=== PATIENT | female | born 1940 | race Caucasian/White ===

== ENCOUNTER 2022-06-10 16:09 | Outpatient (CLI) | payer MEDICARE, SELFPAY ==
--- OUTSIDE RECORDS SUMMARY | 2022-06-10 16:14 | XMS_ITS | Encounter Summary ---
:1940 Author Organization [place] Address [address] [place] [address]. [place] [address] Care Team Providers Name Role Phone Miryam Rob Primary Care Provider Encounter Details Date Type Department Care Team Description 09/21/2020 Travel Social History Tobacco Use Types Packs/Day Years Used Date Never Smoker Alcohol Use Standard Drinks/Week Comments Yes 0 (1 standard drink = 0.6 oz pure alcoho l) socially Alcohol Habits Answer Date Recorded How often do you have a drink containing alcohol? Not asked How many drinks containing alcohol do you have on a typical Not asked day when you are drinking? How often do you have six or more drinks on one occasion? No t asked Comment: socially 07/19/2013 Sex Assigned at Date Recorded Not on file COVID-19 Exposure Response Date Recorded In the last month, have you been in contact with No / Unsure 09/21/2020 3:51 PM POWER CHECKER someone who was confirmed or suspected to have Coronavirus / COVID-19? documented as of this encounter Plan of Treatment Not on filedocumented as of this encounter Visit Diagnoses Not on filedocumented in this encounter Care Teams Planer Setup Operator Relationship Specialty Start Date End Date Miryam Rob PCP - General Internal Medicine 07/19/13 [facility] [address] [place] [address] documented as of this encounter
--- OUTSIDE RECORDS SUMMARY | 2022-06-10 16:14 | XMS_ITS | Clinical Summary ---
:1940 Author Organization [place] Address [address] [place] [address] Care Team Providers Name Role Phone Miryam Rob Primary Care Provider Allergies No known active allergies Medications Medication Sig Dispensed Refills Start Date End Date Status LEVOTHYROXINE SODIUM Take 175 mcg by 0 Active PO mouth every other day . Alternates 175 mcg with 200 mcg qod LEVOTHYROXINE SODIUM Take 200 mcg by 0 Active PO mouth every other day .Alternates 175 mcg with 200 mcg qod METOPROLOL SUCCINATE Take 25 mg by 0 Active ER PO mouth Simvastatin (ZOCOR PO) Take 20 mg by 0 Active mouth every morning Citalopram Take 40 mg by 0 Activ e Hydrobromide (CELEXA mouth daily PO) warfarin (COUMADIN) Take 2 tablets (5 30 tablet 0 07/22/2013 Active 2.5 MG mg) by mouth daily tabletIndications: PE (pulmonary embolism) Active Problems Problem Noted Date Acute pulmonary embolism 07/19/2013 Social History Tobacco Use Types Packs/Day Years [...] Assigned at Date Recorded Not on file Last Filed Vital Signs Vital Sign Reading Time Taken Comments Blood Pressure 123/82 02/24/2019 7:31 PM CDT Pulse 85 07/19/2013 3:22 PM CDT Temperature 36.2 ??C (97.1 ??F) 02/24/2019 7:31 PM CDT Respiratory Rate 20 02/24/2019 7:31 PM CDT Oxygen Saturation 98% 02/24/2019 7:31 PM CDT Inhaled Oxygen Concentration - - Weight 99.8 kg (220 lb) 02/24/2019 7:31 PM CDT Height 162.6 cm (5' 4) 02/24/2019 7:31 PM CDT Body Mass Index 37.76 02/24/2019 7:31 PM CDT Plan of Treatment Health Maintenance Due Date Last Done Comments ADVANCE CARE PLANNING 1940 ANNUAL REVIEW OF HM ORDERS 1940 DEXA 1940 COVID-19 Vaccine (#1) 1940 LIPID 1987 FALL RISK ASSESSMENT 2007 MEDICARE ANNUAL WELLNESS 2007 VISIT DTAP/TDAP/TD IMMUNIZATION 03/18/2008 03/17/2008 (1 - Tdap) ZOSTER IMMUNIZATION (2 of 10/02/2012 08/07/2012 3) PHQ-2 (once per calendar 09/29/2021 year) INFLUENZA VACCINE (#1) 2022 07/01/2018, 06/11/2017, 07/06/2015, Additional history exists Pneumococcal Vaccine: 65+ Completed 01/02/2015, 05/25/2010 , Years 03/17/2008 HEPATITIS B IMMUNIZATION Aged Out No long er eligible based on patient 's age to complete this topic IPV IMMUNIZATION Aged Out No longer eligi ble based on patient 's age to complete this topic MENINGITIS IMMUNIZATION Aged Out No longe r eligible based on patient 's age to complete this topic Insurance Payer Benefit Plan / Subscriber ID Effective Phone Address T ype Group Dates MEDICARE MEDICARE [id number] 2007-Pre [phone] ATTN Medic are sent [id number] [place] [address] [facility] [id number] 2018-Pre [phone] [address] MEDICARE SUPP SR sent [phone] [facility] [place] [id number] MEDICARE MEDICARE FOR HB [id number] 2012-Pre [phone] ATTN Medicare SUPPLEMENT sent [id number] CLAIMS [address] [place] [address] Advance Directives For more information, please contact: [phone] Latest Code Status on File Code Status Date Activated Date Inactivated Comments Full Code 07/19/2013 8:09 PM 07/22/2013 3:01 PM Care Teams Conservation Technician Relationship Specialty Start Date End Date Miryam Rob PCP - General Internal Medicine 07/19/13 [facility] [address] [place] [address]
--- OUTSIDE RECORDS SUMMARY | 2022-06-10 16:14 | XMS_ITS | Encounter Summary ---
:1940 Author Organization [place] Address [facility] [place] [address] Care Team Providers Name Role Phone Miryam Rob Primary Care Provider Encounter Details Date Type Department Care Team Description 02/24/2019 Emergency [facility] Oral Biswas of left lower leg; [facility] Pati Gates MD Thrombophlebitis; Dept [facility] Subtherapeutic international normalized ratio (INR) [address] [place], [place] [address] [facility] [id number] [place] [address] (Wo rk) Social History Tobacco Use Types Packs/Day Years [...] Assigned at Date Recorded Not on file documented as of this encounter Last Filed Vital Signs Vital Sign Reading Time Taken Comments Blood Pressure 123/82 02/24/2019 7:31 PM CDT Pulse - - Temperature 36.2 ??C (97.1 ??F) 02/24/2019 7:31 PM CDT Respiratory Rate 20 02/24/2019 7:31 PM CDT Oxygen Saturation 98% 02/24/2019 7:31 PM CDT Inhaled Oxygen Concentration - - Weight 99.8 kg (220 lb) 02/24/2019 7:31 PM CDT Height 162.6 cm (5' 4) 02/24/2019 7:31 PM CDT Body Mass Index 37.76 02/24/2019 7:31 PM CDT documented in this encounter Discharge Instructions AttachmentsThe following attachments cannot be sent through Care Everywhere. Thrombophlebitis, Superficial (Nicaraguan)documented in this encounter Medications at Time of Discharge Medication Sig Dispensed Refills Start Date End Date Citalopram Hydrobromide Take 40 mg by mouth 0 (CELEXA PO) daily LEVOTHYROXINE SODIUM PO Take 175 mcg by mouth 0 every other day . Alternates 175 mcg with 200 mcg qod LEVOTHYROXINE SODIUM PO Take 200 mcg by mouth 0 every other day .Alternates 175 mcg with 200 mcg qod METOPROLOL SUCCINATE ER Take 25 mg by mouth 0 PO Simvastatin (ZOCOR PO) Take 20 mg by mouth 0 every morning warfarin (COUMADIN) 2.5 Take 2 tablets (5 mg) 30 tablet 0 1 MG tabletIndications: PE by mouth daily (pulmonary embolism) documented as of this encounter ED Notes Whitney Hung RN - 02/24/2019 7:35 PM CDT Pt has redness and swelling in left lower leg for 5 days. Pt does take coumadin for blood clots. Concerned for DVT Oral Biswas MD - 02/24/2019 7:20 PM CDT History Chief Complaint: Leg Symptoms HPI Milla Gonsales is a 78 year old female with a history of atrial fibrillation, PE, and DVT anticoagulated on Coumadin who presents with leg symptoms. The patient reports that for the past 5 days she has had increased redness, swelling, and pain to her left foot and leg. She states the foot is t malathi to touch and this discomfort is aggravated by walking. She is concerned for possible DVT, prompting her presentation to the ED for evaluation. She denies having any recent fevers. Of note, she does not recall when her INR was last checked. PE/DVT RISK FACTORS: Sex: Female Hormones: No Tobacco: No Cancer: No Travel: No Surgery: No Other immobilization: No Personal history: Yes Family history: No Allergies: No known drug allergies Medications: Celexa Levothyroxine Metoprolol succinate Zocor Coumadin Past Medical History: Atrial fibrillation Cancer Depressive disorder Pulmonary embolism Thyroid disease Past Surgical History: Appendectomy Bypass gastric duodenal switch ENT surgery Family History: History reviewed. No pertinent family history. Social History: The patient presents to the ED alone. Marital status: Smoking status: Never Smoker Alcohol use: Yes Drug use: No Review of Systems Constitutional: Negative for fever. Cardiovascular: Positive for leg swelling. Musculoskeletal: Positive for left foot and leg pain. Skin: Positive for color change (redness). All other systems reviewed and are negative. Physical Exam First Vitals: BP: 123/82 Heart Rate: 90 Temp: 97.1 ??F (36.2 ??C) Resp: 20 Height: 162.6 cm (5' 4) Weight: 99.8 kg (220 lb) SpO2: 98 % Physical Exam General: No respiratory distress Cardiovascular: Good cap refill. Varicosities of the left leg. Respiratory: Breathing non labored. Musculoskeletal: No tenderness. No bony deformity. Lymphatic: Swelling of her left leg. Skin: Erythema of the medial left calf. No rashes or petechiae Neurologic: non focal Psychiatric: Appropriate Emergency Department Course Imaging: Radiographic findings were communicated with the patient who voiced understanding of the findings. US LOWER EXTREMITY VENOUS DUPLEX LEFT: IMPRESSION: 1. Acute occlusive superficial venous thrombus involving the lesser saphenous vein in the calf. 2. 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 3. No evidence for any acute deep vein thrombosis. As read by Radiology. Laboratory: INR: 1.28 (H) Interventions: 2217: Lovenox 100 mg IM Emergency Department Course: Past medical records, nursing notes, and vitals reviewed. 2019: I performed an exam of the patient and obtained history, as documented above. The patient was sent for a lower extremity ultrasound while in the emergency department, findings above. IV inserted and blood samples were collected and sent for laboratory testing, findings above. 2147: I rechecked the patient and explained the findings. Findings and plan explained to the patient. Patient discharged home with instructions regarding supportive care and reasons to return. The importance of close follow-up was reviewed. Impression & Plan Medical Decision Making: Milla Gonsales is a 78 year old female with a history of previous DVT. She has unfortunately been cutting back on her medication and that is why she is subtherapeutic for INR. There is rednessalong the left foot, but it does not appear to be cellulitis. I was more suspicious for superficial thrombophlebitis which is present. However, there is an old nonocclusion clot inside the leg. To cover her, I will have her increase her dose of Coumadin to her previous levels and cover her with Lovenox tonight. She was discharged home in good condition with no chest-related symptoms. Diagnosis: ICD-10-CM 1. Pain of left lower leg M79.662 2. Thrombophlebitis I80.9 3. Subtherapeutic international normalized ratio (INR) R79.1 Disposition: Discharged to home Jada Montez 02/24/2019 [facility] EMERGENCY DEPARTMENT I, Jada Montez, am serving as a scribe at 8:20 PM on 02/24/2019 to document services personally performed by Oral Biswas MD based on my observations and the provider's statements to me. Oral Biswas MD 02/24/19 2221 documented in this encounter Plan of Treatment Not on filedocumented as of this encounter Procedures Procedure Name Priority Date/Time Associated Diagnosis Comme nts US LOWER EXTREMITY STAT 02/24/2019 9:28 PM Res ults for this VENOUS DUPLEX LEFT CDT procedure are in the results section. INR STAT 02/24/2019 8:42 PM Results f or this CDT procedure are i n the results section. documented in this encounter Results US Lower Extremity Venous Duplex Left (02/24/2019 9:28 PM CDT) Anatomical Region Laterality Modality Vascular, Thigh, Leg Ultrasound Specimen (Source) Anatomical Location Collection Method / Collectio n Time Received Time / Laterality Volume Impressions 02/24/2019 10:24 PM CDT IMPRESSION: 1. Acute occlusive superficial venous th rombus involving the lesser saphenous vein in the calf. 2. Chronic-appearing nonocclusive thromb us within the left gastrocnemius vein of the calf. 3. No evidence for any acute deep vein t hrombosis. KAYLYN KRUSE MD Narrative 02/24/2019 10:24 PM CDT VENOUS ULTRASOUND LEFT LEG ??02/24/2019 9:28 PM HISTORY: Left leg pain and swelling COMPARISON: 07/19/2013 FINDINGS: ??Examination of the deep vein s with graded compression and color flow Doppler with spectral wave fo rm analysis shows no evidence of thrombus in the common femoral vein, femoral vein, popliteal vein or calf veins. There is some thrombus in the left gastrocnemius vein proximally which appears nonocclusive an d could be chronic. There is also some superficial thrombus in the le ft lesser saphenous vein in the region of the calf which appears acu te and occlusive. Procedure Note Kaylyn Kruse MD - 02/24/2019Form atting of this note might be different from the original. VENOUS ULTRASOUND LEFT LEG 02/24/2019 9:2 8 PM HISTORY: Left leg pain and swelling COMPARISON: 07/19/2013 FINDINGS: Examination of the deep veins with graded compression and color flow Doppler with spectral wave fo rm analysis shows no evidence of thrombus in the common femoral vein, femoral vein, popliteal vein or calf veins. There is some thrombus in the left gastrocnemius vein proximally which appears nonocclusive an d could be chronic. There is also some superficial thrombus in the le ft lesser saphenous vein in the region of the calf which appears acu te and occlusive. IMPRESSION: 1. Acute occlusive superficial venous th rombus involving the lesser saphenous vein in the calf. 2. Chronic-appearing nonocclusive thromb us within the left gastrocnemius vein of the calf. 3. No evidence for any acute deep vein t hrombosis. KAYLYN KRUSE MD Oral Biswas MD [facility] US ORDERABLES (ABNORMAL) INR (02/24/2019 8:42 PM CDT) P athologist Signature INR 1.28 (H) 0.86 - 1.14 02/24/2019 [place] 8:59 PM CDT [facility] Specimen Anatomical Collection Method Collection Time Receive d Time (Source) Location / / Volume Laterality Blood specimen 02/24/2019 8:42 PM 019 8:47 (specimen) CDT PM CDT Oral Biswas MD LAB - BLOOD ORDERABLES Performing Organization Address City/State/ZIP Code Phon e Number M [facility] [address] [place], [place] [address] [facility] [address] [place], [place] [address] [facility] [phone] documented in this encounter Visit Diagnoses Diagnosis Pain of left lower leg Pain in limb Thrombophlebitis Phlebitis and thrombophlebitis of unspec ified site Subtherapeutic international normalized ratio (INR) Abnormal coagulation profile documented in this encounter Administered Medications Inactive Administered Medications - up to 3 most recent administrations Medication Order MAR Action Action Date Dose Rate Site enoxaparin (LOVENOX) injection Given 02/24/2019 10:17 PM CDT 100 mg 100 mg 100 mg, Subcutaneous, ONCE, On Fri02/24/19 at 2155, For 1 dose documented in this encounter Active and Recently Administered Medications Times are shown in CDT. Scheduled Medication Order 02/22/2019 02/23/2019 02/24/2019 enoxaparin (LOVENOX) injection 100 mg (COMPLETED) 2216 (Given - Provider: Jeanine Mccarty LPN) 100 mg, Subcutaneous, ONCE, Fri02/24/19 at 2155, For 1 dose documented in this encounter Care Teams Lighting Technician Relationship Specialty Start Date End Date Miryam Rob PCP - General Internal Medicine 07/19/13 [facility] [address] [place] [address] documented as of this encounter
--- OUTSIDE RECORDS SUMMARY | 2022-06-10 16:14 | XMS_ITS | Encounter Summary ---
:1940 Author Organization [place] Address [address] [place] [address]. [place] [address] Care Team Providers Name Role Phone Miryam Rob Primary Care Provider Encounter Details Date Type Department Care Team Description 02/24/2019 Travel Social History Tobacco Use Types Packs/Day [...] on file documented as of this encounter Plan of Treatment Not on filedocumented as of this encounter Visit Diagnoses Not on filedocumented in this encounter Care Teams Assistant Secretary Relationship Specialty Start Date End Date Miryam Rob PCP - General Internal Medicine 07/19/13 [facility] [address] [place] [address] documented as of this encounter
--- OUTSIDE RECORDS SUMMARY | 2022-06-10 16:15 | XMS_ITS | Encounter Summary ---
:1940 Author Organization [facility] Address [address] [place] [id number] Care Team Providers Name Role Phone Miryam Rob Primary Care Provider Reason for Referral Specialty Diagnoses / Procedures Referred By Contact Refer red To Contact Anjelica Dela Cruz M D [address] [place] [address] Referral ID Status Reason Start Date Expiration Date Visits Requ ested Visits Authorized Reason for Visit Reason Comments Shortness of Breath Auth/Cert - Closed Specialty Diagnoses / Procedures Referred By Contact Refer red To Contact Diagnoses PE (pulmonary embolism) [id number] pulmonary [id number] [facility] [address] [place], [place] [address] Phone: Fax: Referral ID Status Reason Start Date Expiration Date Visits Requ ested Visits Authorized [id number] Closed 07/20/2013 01/16/2014 1 1 Encounter Details Date Type Department Care Team Description 07/19/2013 - [facility] Katia Paris MD [facility] [address] [place] [address] PE (pulmonary embolism) (H) (Primary Dx) ; 07/22/2013 Encounter [facility] [place] [address] [place] [address] Acute pulmonary embolism (H) Surgical [address] [place] [address] Social History Tobacco Use Types Packs/Day Years [...] Sign Reading Time Taken Comments Blood Pressure 129/79 07/22/2013 7:30 AM CDT Pulse 85 07/19/2013 3:22 PM CDT Temperature 35.8 ??C (96.4 ??F) 07/22/2013 7:30 AM CDT Respiratory Rate 20 07/22/2013 7:30 AM CDT Oxygen Saturation 95% 07/22/2013 7:30 AM CDT Inhaled Oxygen Concentration - - Weight 107 kg (235 lb 12.8 oz) 07/19/2013 8:06 PM CDT Height 162.6 cm (5' 4) 07/19/2013 8:06 PM CDT Body Mass Index 40.47 07/19/2013 8:06 PM CDT documented in this encounter Discharge Summaries Anjelica Dela Cruz MD - 07/22/2013 11:01 AM CDT PRIMARY CARE PHYSICIAN: Dr. Miryam Rob. DISCHARGE DIAGNOSIS: Acute bilateral pulmonary embolism. SECONDARY DIAGNOSES: 1. Hypothyroidism. 2. History of depression. 3. Atrial fibrillation. 4. Hyperlipidemia. DISCHARGE DISPOSITION: Home. CONDITION ON DISCHARGE: The patient is hemodynamically stable. She is off oxygen. She has no chest pain or shortness of breath. Vital signs are stable on the day of discharge. Her INR is 1.33. DISCHARGE MEDICATIONS: 1. Coumadin 2.5 mg tablets 2 tablets that is 5 mg daily until 07/26/2013 when she gets INR check at her primary care doctor's office in [place] for further Coumadin dosing. 2. Lovenox 105 mg subcutaneous injection twice a day for the next 5 days. 3. Celexa 40 mg p.o. daily. 4. Levothyroxine 125 mcg p.o. every other day and 200 mcg every other day as well. 5. Metoprolol 25 mg p.o. daily. 6. Zocor 20 mg p.o. daily. 7. Her aspirin was stopped due to concern for GI for bleeding, in addition to Lovenox and Coumadin. DISCHARGE INSTRUCTIONS: DIET: Regular as tolerated. She was told about anticoagulation and interaction with nutrition. ACTIVITIES: As tolerated. FOLLOWUP: Follow up with her primary doctor. Her primary care physician is Dr. Miryam Rob of [facility] in [place]. Her fax number is [phone], telephone number is [phone]. CODE STATUS: The patient is full code. ALLERGIES: No known medication allergies. BRIEF HOSPITAL SUMMARY: Lynne Gonsales is a 73-year-old female who was admitted to [facility] after she presented with shortness of breath. She had extensive bilateral pulmonaryembolism, and fortunately her symptoms were mild to moderate. The patient was treated with IV heparin, which was changed to Lovenox injection; she was told about anticoagulation, and this was transitioned to Lovenox and Coumadin. Her INR will be rechecked at her primary doctor's next week, 07/26/2013 for further dosing of Coumadin. She was discharged on 5 mg daily. Overall, the patient's condition improved and she was seen by physical therapy and occupational therapy. She was ambulatory and she was a little short of breath when ambulating, dyspnea on exertion; however, she has no hypoxia. Echocardiogram was obtained on 07/20/2013, which showed normal left ventricular function, moderate bilateral enlargement, likely from atrial fibrillation, right ventricular systolic pressure was elevated consistent with mild pulmonary hypertension. CT scan of the chest showed bilateral pulmonary emboli, right greater than left, and there was possible right heart strain on the CT scan. Overall on the day of discharge, the patient is comfortable. She is able to discharge on above medication recommendations and follow up with her primary doctor. Her other medical problems have been stable and she was instructed to follow with her primary doctoras well. More than 30 minutes spent on discharge and coordination of this patient's discharge. ANJELICA DELA CRUZ MD MT: [id number] Name: LYNNE GONSALES MRN: [id number] Account: [id number] : 1940 Admit Date: Discharge Date: Document: [id number] cc: Miryam Rob MD documented in this encounter Discharge Instructions AttachmentsThe following attachments cannot be sent through Care Everywhere. Enoxaparindocumented in this encounter Medications at Time of [...] mg) 30 tablet 0 1 MG tabletIndications: by mouth daily PE (pulmonary embolism) enoxaparin (LOVENOX) Inject 0.7 mLs (105 7 mL 0 201207/27/2013 120 MG/0.8ML mg) Subcutaneous every SOLNIndications: PE 12 hours for 5 days (pulmonary embolism) documented as of this encounter Progress Notes Abbey Garcia - 07/22/2013 10:50 AM CDT 07/22/13 1049 Signing Clinician's Name / Credentials Signing clinician's name / credentials Abbey Garcia DPT Khanna Balance Scale Sit To Stand 4 Standing Unsupported 4 Sitting Unsupported 4 Stand to Sit 4 Transfers 4 Standing with Eyes Closed 4 Standing Unsupported, Feet Together 4 Reach Forward With Outstretched Arm 4 Retrieve Object From Floor 4 Turning to Look Behind 4 Turn 360 Degrees 4 Placing Alternate Foot on Stool (4-6 inches) 3 Unsupported Tandem Stand (Demonstrate to Subject) 0 One Leg Stand 2 Total Score (A score of 45 or less has been correlated with an increased risk of falls) Total Score (out of 56) 49 Abbey Garcia - 07/21/2013 2:55 PM CDT 07/21/13 1451 Quick Adds Type of Visit Initial PT Evaluation Living Environment (R) Lives With spouse Transportation Available family or friend will provide;car Self-Care Usual Activity Tolerance good Current Activity Tolerance moderate Activity/Exercise/Self-Care Comment pt does not use an AD. (R) Functional Level Prior (R) Ambulation 0-->independent (R) Transferring 0-->independent (R) Toileting 0-->independent (R) Bathing 0-->independent (R) Dressing 0-->independent (R) Eating 0-->independent (R) Communication 0-->understands/communicates without difficulty (R) Swallowing 0-->swallows foods and liquids without difficulty (R) Cognition 0 - no cognition issues reported (R) Fall history within last six months no (R) Which of the above functional risks had a recent onset or change? none Prior Functional Level Comment Pt was I with all mobility and ADLs at baseline. General Information Onset of Illness/Injury or Date of Surgery - Date 07/19/[address] Dela Cruz Patient/Family Goals Statement to go home tomorrow Pertinent History of Current Problem Pt admitted with SOB and RAMIREZ, found to have B PE. PMH: A-fib, colon cancer Precautions/Limitations fall precautions Weight-Bearing Status - LUE full weight-bearing Weight-Bearing Status - RUE full weight-bearing Weight-Bearing Status - LLE full weight-bearing Weight-Bearing Status - RLE full weight-bearing General Observations pt was in bed, agreeable to PT eval General Info Comments family present during eval Cognitive Status Examination Orientation orientation to person, place and time Level of Consciousness alert Follows Commands and Answers Questions 100% of the time Personal Safety and Judgment intact Memory intact Pain Assessment Patient Currently in Pain No Posture Posture Forward head position;Protracted shoulders Range of Motion (ROM) ROM Comment B LE ROM WFL Strength Strength Comments LE strength WFL Bed Mobility Bed Mobility Comments SBA for supine <> sit Transfer Skills Transfer Comments SBA for sit <> stand Gait Gait Comments Pt ambulated 30 feet with SBA Balance Balance Comments sitting balance is good, standing balance is fair/good. Muscle Tone Muscle Tone no deficits were identified General Therapy Interventions Planned Therapy Interventions balance training;gait training;strengthening;progressive activity/exercise;home program guidelines Clinical Impression Criteria for Skilled Therapeutic Intervention yes, treatment indicated PT Diagnosis decreased activity tolerance APTA Preferred Practice Pattern cardiopulmonary Influenced by the following impairments SOB, impaired balance Functional limitations due to impairments fatigues quickly with mobilty Rehab Potential good, to achieve stated therapy goals Rehab potential affected by PLOF Therapy Frequency` daily Predicted Duration of Therapy Intervention (days/wks) 2 days Anticipated Discharge Disposition home w/ assist;home w/ outpatient services Risk & Benefits of therapy have been explained Yes Patient, Family & other staff in agreement with plan of care Yes Total Evaluation Time Total Evaluation Time (Minutes) 15 Anjelica Dela Cruz MD - 07/21/2013 2:45 PM CDT [facility] Hospitalist Progress Note Name: Lynne Gonsales Date of : 1940 Age: [age] year old Date of admission: 07/19/2013 Primary care provider: Miryam Rob Lynne Gonsales is a 73 year old female admitted on 07/19/2013 for :Shortness of breath. Patient Active Problem List Diagnosis ??? Acute pulmonary embolism Interval History: Patient was seen and examined Medical records reviewed including overnight events and nursing notes and concerns. no complaints and doing well; no cp, sob, n/v/d, or abd pain. Physical Exam: Vitals signs Blood pressure 99/61, pulse 85, temperature 98.5 ??F (36.9 ??C), temperature source Oral, resp. rate16, height 1.626 m (5' 4), weight 106.958 kg (235 lb 12.8 oz), SpO2 99.00%. I/O I/O last 3 completed shifts: In: 240.8 [I.V.:240.8] Out: - Filed Vitals: 07/19/13 1522 07/19/132005 Weight: 103.874 kg (229 lb) 106.958 kg (235 lb 12.8 oz) BP Readings from Last 1 Encounters: 07/21/13 99/61 Pulse Readings from Last 1 Encounters: 07/19/13 85 Resp Readings from Last 1 Encounters: 07/21/13 16 Temp Readings from Last 1 Encounters: 07/21/13 98.5 ??F (36.9 ??C) Oral SpO2 Readings from Last 1 Encounters: 07/21/13 99% Wt Readings from Last 1 Encounters: 07/19/13 106.958 kg (235 lb 12.8 oz) Ht Readings from Last 1 Encounters: 07/19/13 1.626 m (5' 4) GENERAL: The patient is an alert, oriented female who is in no acute distress. HEENT: Pupils round, react to light. Extraocular movements are intact. Sclerae are nonicteric. Conjunctiva is pink. Oral mucosa is pink and moist. NECK: Supple with no evidence of cervical lymphadenopathy or thyromegaly. Trachea is midline. CARDIAC: Irregular, irregular rhythm but no significant murmur, rubs or gallops appreciated. PULMONARY: Exam is slightly decreased at the bases but otherwise clear to auscultation bilaterally. No significant wheezing, rales or rhonchi appreciated. No use of accessory muscles or intercostal retraction. ABDOMEN: Obese sounds are present, soft, nontender, nondistended with no hepatosplenomegaly. EXTREMITIES: Reveals no clubbing, cyanosis or edema. Her bilateral legs are somewhat plump but no obvious erythema, palpable cords or swelling appreciated. NEUROLOGIC: Cranial nerves II-XII is intact. She has bilateral symmetric upper and lower extremity strength. Sensation is intact distally. She has no focal deficits. PSYCHIATRIC: Mood and affect are appropriate. Medications: I have reviewed this patient's current medications Data: All laboratory and imaging data in the past 24 hours reviewed Lab 07/19/13 1555 WBC 7.2 HGB 12.4 HCT 38.2 MCV 87 PLT 187 No results found for this basename: CULT:* in the last 168 hours Lab 07/19/13 1555 NA 142 POTASSIUM 4.1 CHLORIDE 106 CO2 24 ANIONGAP 12 GLC 90 BUN 17 CR 0.82 GFRESTIMATED 69 GFRESTBLACK 83 KB 9.0 MAG -- PHOS -- PROTTOTAL -- ALBUMIN -- BILITOTAL -- ALKPHOS -- AST -- ALT -- Lab 07/19/13 1555 CR 0.82 Lab 07/19/13 1555 GLC 90 BGM -- Lab 07/19/13 1555 HGB 12.4 Lab 07/21/13 0731 07/20/13 0640 07/19/13 1555 INR 1.16* 1.16* 0.88 Lab 07/19/13 1555 PLT 187 Lab 07/19/13 1555 TROPONIN -- TROPI <0.012 TROPR -- Recent Results (from the past 48 hour(s)) -XR CHEST 2 VW Narrative: XR CHEST 2 VW 07/19/2013 4:22 PM HISTORY: Short of breath. COMPARISON: None. FINDINGS: Heart size normal. Lungs clear. Mild hypertrophic changes thoracic spine. Impression: IMPRESSION: Negative chest. ITZ ALVAREZ MD -CT CHEST PULMONARY EMBOLISM W CONTRAST Narrative: CT CHEST PULMONARY EMBOLISM WITH CONTRAST 07/19/2013 6:07 PM HISTORY: Shortness of breath. Elevated D-dimer. TECHNIQUE: CT chest with intravenous contrast using the pulmonary embolus protocol. 97 mL Optiray-320. COMPARISON: None. FINDINGS: Evaluation of the pulmonary arterial system shows large central pulmonary emboli extending into all three lobes of the right lung. There are smaller emboli in the left upper lobe and left lower lobe pulmonary arteries. The right ventricle is at least as large as the left ventricle suggesting right heart strain. There is no mediastinal, hilar or axillary lymph node enlargement. There are a few coronary artery atherosclerotic calcifications. No aortic aneurysm or dissection. There is minimal atelectasis or scarring in the lower lobes. Lungs otherwise clear. No pleural effusion. Images through the upper abdomen show no acute abnormalities. There are postoperative changes in the stomach. Impression: IMPRESSION: 1. Bilateral pulmonary emboli, right greater than left. 2. Possible right heart strain. Dr. Paris was contacted by me on 07/19/2013 at 6:15 p.m. regarding the abnormal finding of pulmonary emboli and verbalized understanding of the abnormal finding. ROSIO SOLIMAN MD -US LOWER EXTREMITY VENOUS DUPLEX BILATERAL Narrative: US LOWER EXTREMITY VENOUS DUPLEX BILATERAL 07/19/2013 9:59 PM HISTORY: Pulmonary embolus. Evaluate for DVT. COMPARISON: None. FINDINGS: Bright-scale, color and Doppler spectral analysis ultrasound was performed of the legs. Compression and augmentation imaging was performed. There is no evidence for deep venous thrombosis. The veins compress and augment normally. Impression: IMPRESSION: No DVT. ROSIO SOLIMAN MD Assessment and Plan: Ms. Lynne Gonsales is a 73-year-old female with a past medical history significant for atrial fibrillation, hypothyroidism, remote history of colon cancer who comes in to the emergency room with a 4-day complaint of worsening shortness of breath and dyspnea on exertion. Evaluation in the emergency room reveals fairly extensive pulmonary emboli, encompassing all 3 lobes of her right lung and afew smaller emboli on the left. Surprisingly, given her extensive embolism she remains quite stable with stable vital signs and fairly asymptomatic at rest. She has been started on heparin drip and is admitted to the hospital for further evaluation and management for her acute PE. 1. Acute bilateral pulmonary embolism. -continue heparin and coumadin -will transition to lovenox and coumadin this evening -No DVT evident on US -Anticoagulation teaching 2. Hypothyroidism: Synthroid. 3. Atrial fibrillation: Currently rate controlled. Will continue metoprolol 4. Depression: Continue Celexa. 5. Hyperlipidemia: Continue Zocor. 6. Activity as able Disposition -continue inpatient care ,may discharge in a day or so if she remains stable Enedina Hidalgo RN - 07/21/2013 6:13 AM CDT Assisted pt up to the BR. Noted pt to be slightly unsteady on feet. Pt refused to allow staff in theBR with her. Informed pt of fall risk & noted to be unsteady on her feet. Pt stated she needed privacy. Again explained to pt fall precautions & risk. Pt verbalized understanding but continued to decline staff to leave door open & be within an arms reach of pt. Enedina Hidalgo RN, C, BSN, CDE Medical/Telemetry - 3 Anjelica Dela Cruz MD - 07/20/2013 2:02 PM CDT [facility] Hospitalist Progress Note Name: Lynne Gonsales Date of : 1940 Age: [age] year old Date of admission: 07/19/2013 Primary care provider: Miryam Rob Lynne Gonsales is a 73 year old female admitted on 07/19/2013 for :Shortness of breath. Patient Active Problem List Diagnosis ??? Acute pulmonary embolism Interval History: Patient was seen and examined Medical records reviewed including overnight events and nursing notes and concerns. no complaints and doing well; no cp, sob, n/v/d, or abd pain. Physical Exam: Vitals signs Blood pressure 107/68, pulse 85, temperature 96.6 ??F (35.9 ??C), temperature source Oral, resp. rate 16, height 1.626 m (5' 4), weight 106.958 kg (235 lb 12.8 oz), SpO2 96.00%. I/O I/O last 3 completed shifts: In: 491.7 [P.O.:300; I.V.:191.7] Out: - Filed Vitals: 07/19/13 1522 07/19/132005 Weight: 103.874 kg (229 lb) 106.958 kg (235 lb 12.8 oz) BP Readings from Last 1 Encounters: 07/20/13 107/68 Pulse Readings from Last 1 Encounters: 07/19/13 85 Resp Readings from Last 1 Encounters: 07/20/13 16 Temp Readings from Last 1 Encounters: 07/20/13 96.6 ??F (35.9 ??C) Oral SpO2 Readings from Last 1 Encounters: 07/20/13 96% Wt Readings from Last 1 Encounters: 07/19/13 106.958 kg (235 lb 12.8 oz) Ht Readings from Last 1 Encounters: 07/19/13 1.626 m (5' 4) GENERAL: The patient is an alert, oriented female who is in no acute distress. HEENT: Pupils round, react to light. Extraocular movements are intact. Sclerae are nonicteric. Conjunctiva is pink. Oral mucosa is pink and moist. NECK: Supple with no evidence of cervical lymphadenopathy or thyromegaly. Trachea is midline. CARDIAC: Irregular, irregular rhythm but no significant murmur, rubs or gallops appreciated. PULMONARY: Exam is slightly decreased at the bases but otherwise clear to auscultation bilaterally. No significant wheezing, rales or rhonchi appreciated. No use of accessory muscles or intercostal retraction. ABDOMEN: Obese sounds are present, soft, nontender, nondistended with no hepatosplenomegaly. EXTREMITIES: Reveals no clubbing, cyanosis or edema. Her bilateral legs are somewhat plump but no obvious erythema, palpable cords or swelling appreciated. NEUROLOGIC: Cranial nerves II-XII is intact. She has bilateral symmetric upper and lower extremity strength. Sensation is intact distally. She has no focal deficits. PSYCHIATRIC: Mood and affect are appropriate. Medications: I have reviewed this patient's current medications Data: All laboratory and imaging data in the past 24 hours reviewed Lab 07/19/13 1555 WBC 7.2 HGB 12.4 HCT 38.2 MCV 87 PLT 187 No results found for this basename: CULT:* in the last 168 hours Lab 07/19/13 1555 NA 142 POTASSIUM 4.1 CHLORIDE 106 CO2 24 ANIONGAP 12 GLC 90 BUN 17 CR 0.82 GFRESTIMATED 69 GFRESTBLACK 83 KB 9.0 MAG -- PHOS -- PROTTOTAL -- ALBUMIN -- BILITOTAL -- ALKPHOS -- AST -- ALT -- Lab 07/19/13 1555 CR 0.82 Lab 07/19/13 1555 GLC 90 BGM -- Lab 07/19/13 1555 HGB 12.4 Lab 07/20/13 0640 07/19/13 1555 INR 1.16* 0.88 Lab 07/19/13 1555 PLT 187 Lab 07/19/13 1555 TROPONIN -- TROPI <0.012 TROPR -- Recent Results (from the past 48 hour(s)) -XR CHEST 2 VW Narrative: XR CHEST 2 VW 07/19/2013 4:22 PM HISTORY: Short of breath. COMPARISON: None. FINDINGS: Heart size normal. Lungs clear. Mild hypertrophic changes thoracic spine. Impression: IMPRESSION: Negative chest. ITZ ALVAREZ MD -CT CHEST PULMONARY EMBOLISM W CONTRAST Narrative: CT CHEST PULMONARY EMBOLISM WITH CONTRAST 07/19/2013 6:07 PM HISTORY: Shortness of breath. Elevated D-dimer. TECHNIQUE: CT chest with intravenous contrast using the pulmonary embolus protocol. 97 mL Optiray-320. COMPARISON: None. FINDINGS: Evaluation of the pulmonary arterial system shows large central pulmonary emboli extending into all three lobes of the right lung. There are smaller emboli in the left upper lobe and left lower lobe pulmonary arteries. The right ventricle is at least as large as the left ventricle suggesting right heart strain. There is no mediastinal, hilar or axillary lymph node enlargement. There are a few coronary artery atherosclerotic calcifications. No aortic aneurysm or dissection. There is minimal atelectasis or scarring in the lower lobes. Lungs otherwise clear. No pleural effusion. Images through the upper abdomen show no acute abnormalities. There are postoperative changes in the stomach. Impression: IMPRESSION: 1. Bilateral pulmonary emboli, right greater than left. 2. Possible right heart strain. Dr. Paris was contacted by me on 07/19/2013 at 6:15 p.m. regarding the abnormal finding of pulmonary emboli and verbalized understanding of the abnormal finding. ROSIO SOLIMAN MD -US LOWER EXTREMITY VENOUS DUPLEX BILATERAL Narrative: US LOWER EXTREMITY VENOUS DUPLEX BILATERAL 07/19/2013 9:59 PM HISTORY: Pulmonary embolus. Evaluate for DVT. COMPARISON: None. FINDINGS: Bright-scale, color and Doppler spectral analysis ultrasound was performed of the legs. Compression and augmentation imaging was performed. There is no evidence for deep venous thrombosis. The veins compress and augment normally. Impression: IMPRESSION: No DVT. ROSIO SOLIMAN MD Assessment and Plan: Ms. Lynne Gonsales is a 73-year-old female with a past medical history significant for atrial fibrillation, hypothyroidism, remote history of colon cancer who comes in to the emergency room with a 4-day complaint of worsening shortness of breath and dyspnea on exertion. Evaluation in the emergency room reveals fairly extensive pulmonary emboli, encompassing all 3 lobes of her right lung and afew smaller emboli on the left. Surprisingly, given her extensive embolism she remains quite stable with stable vital signs and fairly asymptomatic at rest. She has been started on heparin drip and is admitted to the hospital for further evaluation and management for her acute PE. 1. Acute bilateral pulmonary embolism. -continue heparin and start coumadin -monitor closely -No DVT evident on US -Anticoagulation teaching 2. Hypothyroidism: Synthroid. 3. Atrial fibrillation: Currently rate controlled. Will continue metoprolol 4. Depression: Continue Celexa. 5. Hyperlipidemia: Continue Zocor. 6. Activity as able Disposition -continue inpatient care documented in this encounter H&P Notes Natalie Azar PA-C - 07/19/2013 8:45 PM CDT PRIMARY CARE PROVIDER: I believe through [facility]. CHIEF COMPLAINT: Shortness of breath. HISTORY OF PRESENT ILLNESS: Ms. Lynne Gonsales is a 73-year-old female with a past medical history significant for atrial fibrillation, hypothyroidism, depression and previous history of colon cancer who presents to the emergency room with 3-4 day complaint of worsening shortness of breath and dyspnea on exertion. The patient states that on , she developed acute shortness of breath where even short distances across the grocery store cause her severe dyspnea. She had no chest pain or pleuritic pain per se, but she found it was very hard to take in deep breaths and catch her breath. She also denies any significant lightheadedness or dizziness or syncopal episode. She did not want to bother any of her family members so instead she tried to rest throughout the weekend. However, this morning her daughter had noticed her becoming increasingly short of breath and therefore prompted her to come into the emergency room for further evaluation. The patient has no pulmonary complaints in thepast. She does have a history of atrial fibrillation diagnosed about a year ago and is on aspirin only. She has no history of DVT, PE in the past nor does she have a personal or family history of hypercoagulability. She does admit to driving 14-[address] to [place] on 06/29 without much rest in between. She did same extensive drive on the way back on 07/04. She denies having increasing leg swelling or pain or any tenderness. Otherwise, she has been in pretty good state of health with her last colonoscopy for cancer followup being negative in the past 3 months. Upon arrival to the emergency r [facility], her vital signs were actually fairly stable, blood pressures in the 100s with heart rates in the 80s. Her saturation was 96% on room air. Laboratory results were also unremarkable with EKG showingrate controlled atrial fibrillation. However, D-dimer was elevated 19.[address] of the chest shows extensive right-sided pulmonary embolism involving into all 3 lobes of the right lung and smaller emboli in the left upper and left lower lobe. The right ventricle appears to be as largest left, suggestive of possible right heart strain. She remains quite stable during her entire ER visit withstable vital signs and O2 sats and heart rate. Therefore, no indication for lytic was needed. She was started on heparin drip and have recommended for admission to the hospital for further evaluation. PAST MEDICAL HISTORY: 1. Atrial fibrillation diagnosed about a year ago which she has been placed on metoprolol for rate control as well as aspirin. 2. Hypothyroidism. 3. Depression. 4. Right colon cancer, status post laparoscopic colectomy in 2001 with her most recent colonoscopy just 3 months ago that was negative. Status post gastric bypass. 5. Hyperlipidemia. 6. Previous history of superficial phlebitis. MEDICATIONS: Prior to arrival includes: 1. Levothyroxine 175 mg alternating with 200 mcg every other day. 2. Metoprolol XL 25 mg daily. 3. Simvastatin 20 mg p.o. q.a.m. 4. Aspirin 325 mg daily. 5. Celexa 40 mg daily. ALLERGIES: No known drug allergies. FAMILY HISTORY: Significant for cancer. Mother had colon cancer at age 55. Father had a history of lung cancer with been subsequent bone cancer. She has 5 siblings, her oldest brother has a sudden which they do not know whether it was cardiac or not. She had another brother with an CA at the ageof 55. She had another brother with a PE, but it developed a few days after a knee replacement. She also has a second cousin with a history of PE over 30 years ago. SOCIAL HISTORY: The patient is and lives independently with her . She has 1 daughter who currently accompanies her. She is a lifetime nonsmoker, nondrinker. REVIEW OF SYSTEMS: Negative for any recent fevers or chills or nausea, vomiting or complaints of chest pain, no pleuritic symptoms, shortness of breath as discussed above for the last 4 days. She denied any lower extremity swelling or edema or calf tenderness. Otherwise, a system reviewed and all negative beyond those stated in HPI. PHYSICAL EXAMINATION: VITAL SIGNS: T-max of 97.6 with a heart rate of 75, blood pressure 117/74, respirations 18, saturating 94-98% on room air. GENERAL: The patient is an alert, oriented female who is in no acute distress. She has very mild conversational dyspnea with extended conversation. HEENT: Pupils round, react to light. Extraocular movements are intact. Sclerae are nonicteric. Conjunctiva is pink. Oral mucosa is pink and moist. NECK: Supple with no evidence of cervical lymphadenopathy or thyromegaly. Trachea is midline. CARDIAC: Irregular, irregular rhythm but no significant murmur, rubs or gallops appreciated. PULMONARY: Exam is slightly decreased at the bases but otherwise clear to auscultation bilaterally. No significant wheezing, rales or rhonchi appreciated. No use of accessory muscles or intercostal retraction. ABDOMEN: Obese sounds are present, soft, nontender, nondistended with no hepatosplenomegaly. EXTREMITIES: Reveals no clubbing, cyanosis or edema. Her bilateral legs are somewhat plump but no obvious erythema, palpable cords or swelling appreciated. NEUROLOGIC: Cranial nerves II-XII is intact. She has bilateral symmetric upper and lower extremity strength. Sensation is intact distally. She has no focal deficits. PSYCHIATRIC: Mood and affect are appropriate. LABORATORY DATA: Unremarkable CBC and BMP. Elevated D-dimer, I discussed above. CT scan of the chestshowing large central pulmonary emboli extending to 3 lobes of the right lung and small emboli in the left upper and left lower lung and enlarged right ventricle suggestive of possible right heart strain. ASSESSMENT AND PLAN: Ms. Lynne Gonsales is a 73-year-old female with a past medical history significant for atrial fibrillation, hypothyroidism, remote history of colon cancer who comes in to the emergency room with a 4-day complaint of worsening shortness of breath and dyspnea on exertion. Evaluation in the emergency room reveals fairly extensive pulmonary emboli, encompassing all 3 lobes of her right lung and a few smaller emboli on the left. Surprisingly, given her extensive embolism she remains quite stable with stable vital signs and fairly asymptomatic at rest. She has been started on heparin drip and is admitted to the hospital for further evaluation and management for her acute PE. 1. Acute bilateral pulmonary embolism. Given her history of recent extended travel. I suspect this is likely the culprit. She has no other significant history to suggest hypercoagulability. We will admit her to telemetry. We will order Doppler ultrasounds of the leg to assess for any residual clot, especially given potential right heart strain we may need to consider placement of an IVC filter if shehas significant clot burden in her lower extremities. Will obtain an echocardiogram in the morning to evaluate for her right heart function. I will continue her on heparin drip with transition to Coumadin. I will add a hypocoagulable panel for completeness sake but I suspect this is likely provoked from her recent travel. If no other hypercoagulable state is found I suspect a minimum of 6-12 months of Coumadin therapy would be appropriate. In the meantime, I will keep her on bed rest overnight untilultrasound Dopplers are performed to help us assess for residual clot. 2. Hypothyroidism: Resume Synthroid. 3. Atrial fibrillation: Currently rate controlled. Will continue metoprolol. I have discontinued heraspirin for stroke prophylaxis as she will be placed on Coumadin. 4. Depression: Continue Celexa. 5. Hyperlipidemia: Continue Zocor. 6. Activity will be bed rest for now pending findings of Doppler ultrasound. Ultimately she will need to encourage ambulation. 7. This patient is admitted under inpatient status. BRYAN GIVENS DO As dictated by ANABELA CORTES MT: MARY#[id number] Name: LYNNE GONSALES MRN: [id number] Account: [id number] : 1940 Admitted: [id number] Document: [id number] Bryan Givens DO - 07/19/2013 8:37 PM CDT Patient discussed with Natalie Azar PA-C. I also personally saw/examined the patient. I agree withthe exam/plan. Clinically, she appears to be doing very well right now despite her extensive PE. Await pending venous US. Keep on bedrest for now. Continue heparin. Hypercoag workup. All the patients questions were answered. She is comfortable with the plan. documented in this encounter ED Notes Paulette Leahy - 07/19/2013 6:06 PM CDT Pt ambulated to rest room Maisha Wilson - 07/19/2013 4:23 PM CDT Pt back from radiology via cart. Hooked back up to spinning doffer, BP and pulse ox. Siderails x2, call light within reach and family at bedside. Pain is 0/10 and warm blanket given to pt. Rafaela Angel RN - 07/19/2013 3:21 PM CDT C/o 4 day hx of dyspnea with exertion. Pt denies edema, no weight gain recently. No cough. Murali Paris MD - 07/19/2013 3:21 PM CDT History Chief Complaint: Shortness of breath HPI Lynne Gonsales is a 73 year old female with a history of atrial fibrillation, thyroid disease, and cancer who presents from clinic with shortness of breath. The patient report having sudden onset of exertional shortness of breath since walking at [employer] five days ago. She denies sustainingany falls or chest wall trauma. She notes that over the past five days she has been less active secondary to shortness of breath, though she states that this was improving over the past two days. In addition, she notes that she has had new onset of chest pressure; however, she notes that she is unsureif this coincides with her chest pressure with no triggering factors that she can think of. She denies having any associated wheezing, chest pain, leg swelling, or cough. She denies taking any medications for shortness of breath since its onset. The patient denies any recent sick contacts. Furthermore, the patient denies having any recent fevers, chills, weight change, fatigue, diaphoresis, nausea, vomiting, lightheadedness, dizziness, or headache. PE/DVT Risk Factors: The patient has a history of cancer. She denies having any personal or familial history of PE, DVT, or clotting disorder. The patient reports no recent travel, surgery, or other immobilizations. Allergies: No Known Drug Allergies Medications: Levothyroxine Metoprolol Zocor Aspirin Celexa Past Medical History: Atrial fibrillation Thyroid disease Depression Cancer Past Surgical History: Bypass gastric duodenal switch ENT surgery Appendectomy Family History: History reviewed. No pertinent family history. Social History: Tobacco use: Negative. Alcohol use: Socially. Accompanied to ED by: Daughter. Review of Systems Constitutional: Negative for fever, chills, diaphoresis, fatigue and unexpected weight change. Respiratory: Positive for shortness of breath. Negative for cough and wheezing. Cardiovascular: Negative for chest pain and leg swelling. Gastrointestinal: Negative for nausea and vomiting. Neurological: Negative for dizziness, light-headedness and headaches. All other systems reviewed and are negative. Physical Exam First Vitals: BP: 109/81 Pulse: 85 Temp: 97.3 F Resp:18 SpO2: 96% Physical Exam Eye: Pupils are equal, round, and reactive. Extraocular movements intact. ENT: No rhinorrhea. Moist mucus membranes. Normal tongue and tonsil. Cardiac: Regular rate and rhythm. No murmurs, gallops, or rubs. Pulmonary: Clear to auscultation bilaterally. No wheezes, rales, or rhonchi. Abdomen: Positive bowel sounds. Abdomen is soft and non-distended, without focal tenderness. Musculoskeletal: Normal movement of all extremities without evidence for deficit. 1+ pedal edema bilateral and symmetrically. Skin: Warm and dry without rashes. Neurologic: Non-focal exam without asymmetric weakness or numbness. GCS 15 Psychiatric: Normal affect with appropriate interaction with examiner. Emergency Department Course ECG: Indication: Rule out cardiac etiology. Completed at 15:20. Read at 15:20. Rate 86 bpm. ME interval *. QRS duration 76. QT/QTc 402/481. P-R-T axes * -31 - 8. Atrial fibrillation. Left axis deviation. Low voltage QRS. Abnormal ECG. Agree with computer interpretation. Imaging: Radiographic findings were communicated with the patient and family who voiced understanding of the findings. Chest x-ray: Negative chest. Radiology Report. CT chest: 1. Bilateral pulmonary emboli, right greater than left. 2. Possible right heart strain. Radiology Report. Laboratory: CBC: RDW 15.8 high, o/w WNL (WBC 7.2, HGB 12.4, PLT 187) BMP: WNL (Creatinine 0.82) Troponin: <0.012 D-dimer: 19.5 high Interventions: 16:06 - Aspirin 81 mg Tablet PO x4 17:59 - Optiray 97 mL IV 17:59 - NS 1 L IV 18:51 - Heparin drip 25,000 units in D5 IV Emergency Department Course: The patient arrived in triage where her vitals were measured and recorded. The patient and her daughter were then escorted back to the emergency department. The patient's medical records were reviewed.Nursing notes and vitals reviewed. IV inserted and blood drawn. The patient was placed on continuouscardiac monitoring and pulse oximetry. I performed an exam of the patient as documented above. The patient and her daughter are in agreement with my plan of care. The patient was sent for a chest x-ray while here in the emergency department, findings above. With her elevated D-dimer, I ordered for a chest CT to be performed while here in the emergency department. Findings and plan explained to the Patient and daughter who consents to admission. Discussed the patient with ANABELA Azar, for Dr. Givens, who will admit the patient to a monitored bed for further observation, evaluation, and treatment. Impression & Plan Medical Decision Making: The patient is a 73 year old woman who presents with concerns of having fairly sudden onset of shortness of breath that started five days ago. She is rather deconditioned but noted that her breathing is much worse since that time. She denies having any significant pain. She did have a recent long tripby driving to [place] but otherwise denies any pulmonary embolism risk factors. I was concerned about acute coronary syndrome or congestive heart failure although her EKG and troponin are unremarkable. Her leg showed no swelling and she has no orthopnea or weight gain; however, she does have a markedly elevated D-dimer which led to chest C which shows a substantial clot burden with some right sided strain. Despite this, her respiratory rate was never greater than 18 and her oxygen is 100% at rest. She appears clinically well and think that she is reasonable for a telemetry bed. A Heparin drip was started and I spoke with Natalie Azar of the hospitalist service for admission. The patient's questions were answered and she is comfortable with admission. Diagnosis: 1. Pulmonary embolism. I, Liam Shipley, am serving as a scribe at 3:28 PM on 07/19/2013 to document services personally performed by Dr. Paris, based on my observations and the provider's statements to me. Liam Shipley 07/19/2013 [facility] Murali Paris MD 07/21/13 [id number] documented in this encounter Miscellaneous Notes Plan of Care - Sparkle Henry PT - 07/23/2013 7:49 AM CDT Problem: General Rehab Plan of Care Goal: Physical Therapy Goals The patient and/or their tax representative will achieve their patient-specific goals related to the plan of care. The patient-specific goals include: Pt will demonstrate the following by 07/23/13: 1. Ambulate at least 500 feet with CGA keeping O2 sats above 90% demonstrating good balance in orderto access living environment 2. Ascend and descend 10 stairs with railings and CGA in order to access living environment 3. Participate in LE strengthening program to improve functional mobility 4. Pt will demonstrate decrease risk of falls with mobility by scoring >45/56 on the Khanna BalanceAssessment, >19/24 on the dynamic gait index, or < 13.5 seconds on the TUG. Frequency: daily Outcome: Completed Date Met: 07/23/13 Physical Therapy Discharge Summary Reason for therapy discharge: Discharged to home with outpatient therapy. Progress towards therapy goal(s): Goals partially met. Barriers to achieving goals: Stairs not attempted, did not attempt 500 feet of ambulation 3. met 4.met. Therapy recommendation(s): Continued therapy is recommended. Rationale/Recommendations: Pt would benefit from OP vestibular therapy. Plan of Care - Sparkle Ann RN - 07/22/2013 1:05 PM CDT Problem: IP GENERAL POC-ADULT,OB,BEHAVIORAL FVCPM Goal: Individualization/Patient-Specific Goal (Adult,OB,Behavioral The patient and/or their tax representative will achieve their patient-specific goals related to the plan of care. The patient-specific goals include: 1. Afib, cancer, gastric bypass w/duodenal sleeve 2. Admitted w/bilateral PEs 3. Lives w/ Discharged to home with daughter in law. Agrees with discharge plan. Meds e- scribed to [employer]. Discussed diet, bleeding, given information on new medication and PE. Pharmacy-Medication Teaching - Meseret Ferrari [facility] - 07/22/2013 12:19 PM CDT Discharge medication review for this patient is complete. [id number] medication education was provided by the pharmacist. See [facility] for allergy information and immunization status. Pharmacist assisted with medication reconciliation of discharge medications with [employer] medications. Patient was informed to STOP taking the following HOME medications: -Aspirin Patient was informed to START taking the following NEW medications: -Lovenox -Coumadin Patient was informed to make the following changes to prior to admission medications: -None Patient was educated on the following for each discharge medication: Rationale for therapy Duration of treatment Dosing and or monitoring drug levels Common side effects Importance of compliance Drug/food interactions Missed doses Self monitoring parameters Left written materials and instructions (Clinical notes from [facility]) for new medications: Yes OUTCOMES: Patient verbalized understanding IMPORTANT FOLLOW UP NOTES: -PCP follow up on Friday07/26/13 Discharge Medication List Current Facility-Administered Medications Medication Status ??? heparin drip 25,000 units in D5W 250 mL ??? enoxaparin (LOVENOX) injection 105 mg Active ??? warfarin (COUMADIN) tablet 6 mg Completed ??? citalopram (celeXA) tablet 40 mg Active ??? levothyroxine (SYNTHROID, LEVOTHROID) tablet 175 mcg Active ??? levothyroxine (SYNTHROID,LEVOTHROID) tablet 200 mcg Active ??? metoprolol (TOPROL-XL) 24 hr tablet 25 mg Active ??? simvastatin (ZOCOR) tablet 20 mg Active ??? naloxone (NARCAN) injection 0.1-0.4 mg Active ??? Lidocaine 1 % injection 1 mL Active ??? lidocaine 4 % (LMX4) cream Active ??? sodium chloride (PF) 0.9% PF flush 3 mL Active ??? sodium chloride (PF) 0.9% PF flush 3 mL Active ??? nitroglycerin (NITROSTAT) SL tablet 0.4 mg Active ??? Patient is already receiving full anticoagulation with tPA, HEParin, enoxaparin or warfarin Active ??? acetaminophen (TYLENOL) tablet 650 mg Active ??? senna-docusate (SENOKOT-S;PERICOLACE) 8.6-50 MG per tablet 1-2 tablet Active ??? ondansetron (ZOFRAN-ODT) disintegrating tablet 4 mg Active Or ??? ondansetron (ZOFRAN) injection 4 mg Active ??? prochlorperazine (COMPAZINE) injection 5 mg Active Or ??? prochlorperazine (COMPAZINE) tablet 5 mg Active Or ??? prochlorperazine (COMPAZINE) suppository 12.5 mg Active ??? Warfarin Therapy Reminder (Check START DATE - warfarin may be starting in the FUTURE) Active Thank you for this patient consult, it has been a pleasure to be part of this patient's care. Meseret Ferrari, PharmD Pharmacy Practice Resident PGY1 Plan of Care - Abbey Garcia - 07/22/2013 11:25 AM CDT Problem: General Rehab Plan of Care Goal: Physical Therapy Goals The patient and/or their tax representative will achieve their patient-specific goals related to the plan of care. The patient-specific goals include: Pt will demonstrate the following by 07/23/13: 1. Ambulate at least 500 feet with CGA keeping O2 sats above 90% demonstrating good balance in orderto access living environment 2. Ascend and descend 10 stairs with railings and CGA in order to access living environment 3. Participate in LE strengthening program to improve functional mobility 4. Pt will demonstrate decrease risk of falls with mobility by scoring >45/56 on the Khanna BalanceAssessment, >19/24 on the dynamic gait index, or < 13.5 seconds on the TUG. Frequency: daily Outcome: Therapy, progress toward functional goals as expected PT: Pt ambulated 300 feet on RA, O2 sats after gait was 96% and HR at 78 bpm. Pt scored 49/56 on theberg balance assessment indicating pt is not a fall risk. Pt did have one major LOB during gait which she was able to self correct. Pt stated she has been having balance issues for the past week d/t anear issue. Recommend pt discharges home with OP PT for vestibular assessment and treatment. Plan of Care - Sean Cota, RN - 07/22/2013 5:29 AM CDT Problem: IP GENERAL POC-ADULT,OB,BEHAVIORAL FVCPM Goal: Individualization/Patient-Specific Goal (Adult,OB,Behavioral The patient and/or their tax representative will achieve their patient-specific goals related to the plan of care. The patient-specific goals include: 1. Afib, cancer, gastric bypass w/duodenal sleeve 2. Admitted w/bilateral PEs 3. Lives w/ Patient alert and oriented X 4, denies pain, SOB, LS clear, tele Afib CVR, voiding adequately in bathroom, lovenox teaching reinforced, patient administered dose this am, slept comfortably this shift. Plan of Care - Pippa Baker RN - 07/21/2013 10:44 PM CDT Problem: IP GENERAL POC-ADULT,OB,BEHAVIORAL FVCPM Goal: Individualization/Patient-Specific Goal (Adult,OB,Behavioral The patient and/or their tax representative will achieve their patient-specific goals related to the plan of care. The patient-specific goals include: 1. Afib, cancer, gastric bypass w/duodenal sleeve 2. Admitted w/bilateral PEs 3. Lives w/ Outcome: Improving VSS. Tele: Afib-HR up to 110-120's with activity. On Metoprolol. Bilateral PE's: Heparin gtt dc'd this shift and Lovenox started. Also on Warfarin. INR 1.16.No DVT. Next dose to be administered by pt. See Echo results. DC 1-2 days if stable. CBC with plts in AM. Initial Assessments - Natalie Johnson-Provider - 07/21/2013 5:15 PM CDT Plan of Care - Abbey Garcia - 07/21/2013 3:12 PM CDT Problem: General Rehab Plan of Care Goal: Physical Therapy Goals The patient and/or their tax representative will achieve their patient-specific goals related to the plan of care. The patient-specific goals include: Pt will demonstrate the following by 07/23/13: 1. Ambulate at least 500 feet with CGA keeping O2 sats above 90% demonstrating good balance in orderto access living environment 2. Ascend and descend 10 stairs with railings and CGA in order to access living environment 3. Participate in LE strengthening program to improve functional mobility 4. Pt will demonstrate decrease risk of falls with mobility by scoring >45/56 on the Khanna BalanceAssessment, >19/24 on the dynamic gait index, or < 13.5 seconds on the TUG. Frequency: daily Outcome: Therapy, progress toward functional goals as expected PT: Orders received, PT Eval completed and treatment initiated. Pt admitted with B PE. At baseline, pt lives with her spouse in a multi level home. Pt is able to stay on main level. She does not use anAD. Currently, pt is SBA for all transfers. Pt ambulated 300 feet with CGA on RA, O2 sats stayed above 96% during gait with some SOB during end of gait. Pt unsteady during gait with staggering gait path with no actual LOB. Pt is limited by decreased strength, SOB, impaired balance, and decreased activity tolerance. Recommend pt discharges home with OP PT to continue to progress balance. Plan of Care - Margaret Swan RN - 07/21/2013 2:02 PM CDT Problem: IP GENERAL POC-ADULT,OB,BEHAVIORAL FVCPM Goal: Individualization/Patient-Specific Goal (Adult,OB,Behavioral The patient and/or their tax representative will achieve their patient-specific goals related to the plan of care. The patient-specific goals include: 1. Afib, cancer, gastric bypass w/duodenal sleeve 2. Admitted w/bilateral PEs 3. Lives w/ Blood pressure 99/61, pulse 85, temperature 98.5 ??F (36.9 ??C), temperature source Oral, resp. rate16, height 1.626 m (5' 4), weight 106.958 kg (235 lb 12.8 oz), SpO2 99.00%. Very pleasant, A/O x4. Up with SBA, refusing to have staff present in bathroom with her. Gait is steady. Walked numerous times in hallway with staff. Bilateral PE's, on heparin gtt infusing at 1050u/hr. Plan to stop heparin gtt at 1600 and give first dose of Lovenox at 1800. Patient would like to complete Lovenox teaching with family when they arrive. Tele AFIB CVR. No c/o pain, sob,or cp. Possible DC tomorrow. Plan of Care - Enedina Hidalgo RN - 07/21/2013 5:44 AM CDT Problem: IP GENERAL POC-ADULT,OB,BEHAVIORAL FVCPM Goal: Individualization/Patient-Specific Goal (Adult,OB,Behavioral The patient and/or their tax representative will achieve their patient-specific goals related to the plan of care. The patient-specific goals include: 1. Afib, cancer, gastric bypass w/duodenal sleeve 2. Admitted w/bilateral PEs 3. Lives w/ Tele: Afib w/CVR. Heparin remains infusing @ 1050 units/hr. Up w/SBA. Received 5 mg of coumadin on the evening shift. Refer to doc flowsheets, MAR, results review, & MD, therapy notes for further details. Continue w/current POC & monitoring, update POC PRN. Enedina Hidalgo RN, C, BSN, CDE Medical/Telemetry - 3 Plan of Care - Qian Sanders RN - 07/20/2013 10:03 PM CDT Problem: IP GENERAL POC-ADULT,OB,BEHAVIORAL FVCPM Goal: Individualization/Patient-Specific Goal (Adult,OB,Behavioral The patient and/or their tax representative will achieve their patient-specific goals related to the plan of care. The patient-specific goals include: Outcome: No Change A/O BA activated. Occ forgets to use call light. Ambulated in hallway with SBA x1 SOB with activity.LS Clear diminished. Hep gtt at 10.5 VSS afebrile INR 1.16 Coumadin 5 mg given Plan of Care - Sparkle Ann RN - 07/20/2013 3:31 PM CDT Problem: IP GENERAL POC-ADULT,OB,BEHAVIORAL FVCPM Goal: Individualization/Patient-Specific Goal (Adult,OB,Behavioral The patient and/or their tax representative will achieve their patient-specific goals related to the plan of care. The patient-specific goals include: Bi lateral PE~ on heparin. A fib on metoprolol. Up with stand by assist to independently. Lungs clear. VSS Plan of Care - Natalie Valerio RN - 07/20/2013 6:46 AM CDT Problem: IP GENERAL POC-ADULT,OB,BEHAVIORAL FVCPM Goal: Individualization/Patient-Specific Goal (Adult,OB,Behavioral The patient and/or their tax representative will achieve their patient-specific goals related to the plan of care. The patient-specific goals include: Outcome: No Change Pt. Slept well overnight. Pt. With the heparin drip infusing at 1200 units/hour with next recheck this am. Pt. Alert and oriented, does get RAMIREZ. Pt. Remains in afib, chronic for her. Plan of Care - Aliyah Ruiz RN - 07/19/2013 10:05 PM CDT Problem: Venous Thromboembolic Disease, VTE and PE (Adult, Obstetrics, Pediatric) Goal: Prevent/Manage Potential Problems New Admit: sob with bilaterally PEs. Heparin gtt at 1350 units/hr, started coumadin tonight. Bedrestuntil US of legs is complete. Denies pain, up with sba, VSS, O2 94% RA. Tele Afib CVR. D-dimer 19.5. Pharmacy-Admission Medication History - Micah George RP - 07/19/2013 7:27 PM CDT Admission medication history interview status for this patient is complete. See [facility] admission navigator for allergy information, prior to admission medications and immunization status. Medication history interview source(s):Family Medication history resources (including written lists, pill bottles, clinic record):list Medication history source reliability:Good Primary pharmacy:[facility] Changes made to [employer] medication list: Added: - Deleted: - Changed: - Actions taken by pharmacist (provider contacted, etc)Called [facility] Additional medication history information:None Medication reconciliation/reorder completed by provider prior to medication history? No Time spent in this activity: 10 min Prior to Admission medications Medication Sig Last Dose Taking? Auth Provider LEVOTHYROXINE SODIUM PO Take 175 mcg by mouth every other day . Alternates 175 mcg with 200 mcg qod 07/19/2013 at Unknown Yes Reported, Patient LEVOTHYROXINE SODIUM PO Take 200 mcg by mouth every other day .Alternates 175 mcg with 200 mcg qod 07/18/2013 at Unknown Yes Reported, Patient METOPROLOL SUCCINATE ER PO Take 25 mg by mouth 07/19/2013 at Unknown Yes Reported, Patient Simvastatin (ZOCOR PO) Take 20 mg by mouth every morning 07/19/2013 at Unknown Yes Reported, Patient ASPIRIN PO Take 325 mg by mouth daily 07/19/2013 at Unknown Yes Reported, Patient Citalopram Hydrobromide (CELEXA PO) Take 40 mg by mouth daily 07/19/2013 at Unknown Yes Reported, Patient documented in this encounter Plan of Treatment Pending Results Name Type Priority Associated Date/Time Diagnoses Factor 5 leiden Lab STAT 07/19/2013 8 :24 mutation analysis PM CDT F2 prothrombin 67111N Lab STAT 2012 8:24 Mut Anal PM CDT Echocardiogram Echocardiography Routine 3 7:30 AM CDT Scheduled Orders Name Type Priority Associated Diagnoses Order S chedule Echocardiogram Echocardiography Routine One Time for 1 Occurrences sta rting 07/20/2013 unti l 07/20/2013 Scheduled Referrals Name Type Priority Associated Diagnoses Order S chedule Inr Clinic Referral Referral Routine PE (pulmonary embolis m) (H) Ordered: 07/22/2013 documented as of this encounter Procedures Procedure Name Priority Date/Time Associated Comments Diagnosis CBC WITH PLATELETS & Routine 07/22/2013 7:40 AM R esults for this DIFFERENTIAL CDT procedure are i n the results section. INR Routine 07/22/2013 7:40 AM Results f or this CDT procedure are i n the results section. INR Routine 07/21/2013 7:31 AM Results f or this CDT procedure are i n the results section. HEPARIN 10A LEVEL Routine 07/21/2013 7:31 AM Resu lts for this CDT procedure are i n the results section. HEPARIN 10A LEVEL Timed 07/20/2013 2:46 PM Resu lts for this CDT procedure are i n the results section. ECHO COMPLETE Routine 07/20/2013 7:15 AM Results for this CDT procedure are i n the results section. INR Routine 07/20/2013 6:40 AM Results f or this CDT procedure are i n the results section. HEPARIN 10A LEVEL Routine 07/20/2013 6:40 AM Resu lts for this CDT procedure are i n the results section. HEPARIN 10A LEVEL Timed 07/19/2013 11:01 Result s for this PM CDT procedure are i n the results section. US LOWER EXTREMITY Routine 07/19/2013 9:59 PM Res ults for this VENOUS DUPLEX CDT procedure are in BILATERAL the results section. FACTOR 2 PROTHROMBIN STAT 07/19/2013 8:24 PM [id number] MUT ANAL CDT PROTEIN S ANTIGEN FREE STAT 07/19/2013 8:24 PM Results for this CDT procedure are i n the results section. PROTEIN C CHROMOGENIC STAT 07/19/2013 8:24 PM Results for this CDT procedure are i n the results section. LUPUS ANTICOAGULANT STAT 07/19/2013 8:24 PM Re sults for this PANEL CDT procedure are i n the results section. HOMOCYSTEINE STAT 07/19/2013 8:24 PM Results f or this CDT procedure are i n the results section. FACTOR 5 LEIDEN STAT 07/19/2013 8:24 PM MUTATION ANALYSIS CDT ANTITHROMBIN III STAT 07/19/2013 8:24 PM Resul ts for this CDT procedure are i n the results section. FACTOR 2 AND 5 Routine 07/19/2013 8:15 PM Results for this MUTATION ANALYSIS CDT procedure are in the results section. CT CHEST PULMONARY STAT 07/19/2013 6:07 PM Res ults for this EMBOLISM W CONTRAST CDT procedur e are in the results section. XR CHEST 2 VIEWS STAT 07/19/2013 4:22 PM Resul ts for this CDT procedure are i n the results section. CBC WITH PLATELETS & STAT 07/19/2013 3:55 PM R esults for this DIFFERENTIAL CDT procedure are i n the results section. TROPONIN I STAT 07/19/2013 3:55 PM Results f or this CDT procedure are i n the results section. INR Routine 07/19/2013 3:55 PM Results f or this CDT procedure are i n the results section. D DIMER QUANTITATIVE Routine 07/19/2013 3:55 PM R esults for this CDT procedure are i n the results section. BASIC METABOLIC PANEL STAT 07/19/2013 3:55 PM Results for this CDT procedure are i n the results section. EKG 12-LEAD, TRACING STAT 07/19/2013 3:20 PM R esults for this ONLY CDT procedure are i n the results section. documented in this encounter Results (ABNORMAL) INR (07/22/2013 7:40 AM CDT) P athologist Signature INR 1.33 (H) 0.86 - 1.14 [facility] Specimen Anatomical Collection Method Collection Time Receive d Time (Source) Location / / Volume Laterality Blood specimen 07/22/2013 7:40 AM 013 7:55 (specimen) CDT AM CDT Natalie Azar PA-C LAB - BLOOD ORDERABLES Performing Organization Address City/State/ZIP Code Phon e Number [facility] [address] [place], [place] [address] [facility] LAB (ABNORMAL) CBC with platelets differential (07/22/2013 7:40 AM CDT) [facility] Method Time Signature WBC 6.0 4.0 - [place] 11.[address] LAB RBC Count 4.66 3.8 - 5.2 [place] 10e12/L [facility] Hemoglobin 13.1 11.7 - [place] 15.7 g/dL [facility] Hematocrit 40.0 35.0 - [place] 47.0 % [facility] MCV 86 78 - 100 [place] fl [facility] MCH 28.1 26.5 - [place] 33.0 pg [facility] MCHC 32.8 31.5 - [place] 36.5 g/dL [facility] RDW 15.6 (H) 10.0 - [place] 15.0 % [facility] Platelet Count 226 150 - [address] LAB Diff Method Automated [facility] LAB % Neutrophils 42.8 % [facility] % Lymphocytes 40.6 % [facility] % Monocytes 10.0 % [facility] % Eosinophils 6.2 % [facility] % Basophils 0.2 % [facility] % Immature 0.2 % [place] Granulocytes [facility] Absolute 2.6 1.6 - 8.3 [place] Neutrophil [facility] Absolute 2.4 0.8 - 5.3 [place] Lymphocytes [address] LAB Absolute 0.6 0.0 - 1.3 [place] Monocytes [address] [place] [address] LAB Absolute 0.4 0.0 - 0.7 [place] Eosinophils [address] [place] [address] LAB Absolute 0.0 0.0 - 0.[address] [place] Basophils [address] [place] [address] LAB Abs Immature 0.0 0 - 0.4 [place] Granulocytes [address] [place] [address] LAB Specimen Anatomical Collection Method Collection Time Receive d Time (Source) Location / / Volume Laterality Blood specimen 07/22/2013 7:40 AM 013 7:55 (specimen) CDT AM CDT Anjelica Dela Cruz MD LAB - BLOOD ORDERABLES Performing Organization Address City/State/ZIP Code Phon e Number M [facility] [address] [place], [place] [address] [facility] Heparin 10a Level (07/21/2013 7:31 AM CDT) P athologist Signature Heparin 10A 0.49 IU/mL [facility] LAB Comment: Therapeutic Range: ?? UFH: ?? 0.15-0.35 IU/mL for low ?intensity dosing ?0.30-0.70 IU/mL for high ?intensity dosing ?? LMWH: ??1.00-2.00 IU/mL if 4-6 h ?post daily dosing ?0.60-1.00 IU/mL if 4-6 h ?post twice a day dosin g Specimen Anatomical Collection Method Collection Time Receive d Time (Source) Location / / Volume Laterality Blood specimen 07/21/2013 7:31 AM 013 7:36 (specimen) CDT AM CDT Julito Yuen [facility] LAB - BLOOD ORDERABLES Performing Organization Address City/[facility]/ZIP Code Phon e Number [facility] [address] [place], [place] [address] [facility] LAB (ABNORMAL) INR (07/21/2013 7:31 AM CDT) P athologist Signature INR 1.16 (H) 0.86 - 1.14 [facility] Specimen Anatomical Collection Method Collection Time Receive d Time (Source) Location / / Volume Laterality Blood specimen 07/21/2013 7:31 AM 013 7:36 (specimen) CDT AM CDT Natalie DONAHUEC LAB - BLOOD ORDERABLES Performing Organization Address City/State/ZIP Code Phon e Number [facility] [address] [place], [place] [address] [facility] Heparin 10a Level (07/20/2013 2:46 PM CDT) P athologist Signature Heparin 10A 0.60 IU/mL [facility] Comment: Therapeutic Range: ?? UFH: ?? 0.15-0.35 IU/mL for low ?intensity dosing ?0.30-0.70 IU/mL for high ?intensity dosing ?? LMWH: ??1.00-2.00 IU/mL if 4-6 h ?post daily dosing ?0.60-1.00 IU/mL if 4-6 h ?post twice a day dosin g Specimen Anatomical Collection Method Collection Time Receive d Time (Source) Location / / Volume Laterality Blood specimen 07/20/2013 2:46 PM 013 2:56 (specimen) CDT PM CDT Ernestine Resendiz [facility] LAB - BLOOD ORDERABLES Performing Organization Address City/State/ZIP Code Phon e Number [facility] [address] [place], [place] [address] [facility] Echocardiogram (07/20/2013 7:15 AM CDT) Patholo gist Method Time Signature [facility] Interpretation Summary RESULTS The left ventricle is normal in structure, function and size . The visual ejection fraction is estimated at 60-65%. There is moderate biatrial enlargement. There is mild (1+) mitral regurgitation. There is moderate (2+) tricuspid regurgitation. Right ventricular systolic pressure is elevated, consistent with mild pulmonary hypertension. PatientHeight: 64 in PatientWeight: 235 lbs SystolicPressure: 117 mmHg DiastolicPressure: 74 mmHg HeartRate: 73 bpm BSA 2.1 m^2 Left Ventricle The left ventricle is normal in structure, function and size . There is borderline concentric left ventricular hypertrophy. The visual ejection fraction is estimated at 60-65%. No regional wall motion abnormalities noted. Right Ventricle The right ventricle is normal in structure, function and siz e. Atria There is moderate biatrial enlargement. There is no atrial shunt seen. Mitral Valve The mitral valve is normal in structure and function. There is mild (1+) mitral regurgitation. Tricuspid Valve The tricuspid valve is not well visualized, but is grossly n ormal. There is moderate (2+) tricuspid regurgitation. The right ventricular systolic pressure is approximated at 32 mmHg plus the right atrial pressure. Right ventricular systolic pressure is elevated, consistent with mild pulmonary hypertension. Aortic Valve The aortic valve is normal in structure and function. No aortic regurgitation is present. Pulmonic Valve The pulmonic valve is not well seen, but is grossly normal. There is no pulmonic valvular regurgitation. Vessels Normal size aorta. The IVC is normal in size and reactivity with respirat ion, suggesting normal central venous pressure. Pericardium The pericardium appears normal. There is no pleural effusion. Rhythm The rhythm was atrial fibrillation. Procedure Complete Portable Echo Adult. MMode 2D Measurements & Calculations RVDd: 3.7 cm IVSd: 1.3 cm LVIDd: 4.1 cm LVIDs: 2.8 cm LVPWd: 1.1 cm FS: 33 % LV mass(C)d: 173 grams Ao root diam: 2.8 cm LA dimension: 4.1 cm asc Aorta: 3.4 cm LA/Ao: 1.5 LVOT diam: 1.8 cm Time Measurements Aortic HR: 68 BPM Doppler Measurements & Calculations MV E point: 91 cm/sec MV dec time: 0.21 sec LV V1 max: 94 cm/sec LV V1 VTI: 23 cm CO(LVOT): 4.0 l/min CI(LVOT): 1.9 l/min/m^2 SV(LVOT): 58 ml TR Max shankar: 285 cm/sec TR Max P mmHg Interpreting Physician: ??Waylon Jackson MD electr onically signed on 07-20-2013 09:10:40 Anatomical Region Laterality Modality Echocardiography Specimen (Source) Anatomical Collection Method Collection Time Re ceived Time Location / / Volume Laterality 07/20/2013 7:15 AM CDT Natalie Azar PA-C CV ECHO ORDERABLES Heparin 10a Level (07/20/2013 6:40 AM CDT) P athologist Signature Heparin 10A 0.73 IU/mL [facility] Comment: Therapeutic Range: ?? UFH: ?? 0.15-0.35 IU/mL for low ?intensity dosing ?0.30-0.70 IU/mL for high ?intensity dosing ?? LMWH: ??1.00-2.00 IU/mL if 4-6 h ?post daily dosing ?0.60-1.00 IU/mL if 4-6 h ?post twice a day dosin g Specimen Anatomical Collection Method Collection Time Receive d Time (Source) Location / / Volume Laterality Blood specimen 07/20/2013 6:40 AM 013 6:50 (specimen) CDT AM CDT Julito Yune [facility] LAB - BLOOD ORDERABLES Performing Organization Address City/State/[facility] Phon e Number M [facility] [address] [place] [address] [facility] LAB (ABNORMAL) INR (07/20/2013 6:40 AM CDT) P athologist Signature INR 1.16 (H) 0.86 - 1.14 [facility] Specimen Anatomical Collection Method Collection Time Receive d Time (Source) Location / / Volume Laterality Blood specimen 07/20/2013 6:40 AM 013 6:50 (specimen) CDT AM CDT Natalie Azar PA-C LAB - BLOOD ORDERABLES Performing Organization Address City/[facility] Phon e Number M [facility] [address] [place] [address] [facility] Heparin 10a Level (07/19/2013 11:01 PM CDT) P athologist Signature Heparin 10A 0.92 IU/mL [facility] Comment: Therapeutic Range: ?? UFH: ?? 0.15-0.35 IU/mL for low ?intensity dosing ?0.30-0.70 IU/mL for high ?intensity dosing ?? LMWH: ??1.00-2.00 IU/mL if 4-6 h ?post daily dosing ?0.60-1.00 IU/mL if 4-6 h ?post twice a day dosin g Specimen Anatomical Collection Method Collection Time Receive d Time (Source) Location / / Volume Laterality Blood specimen 07/19/2013 11:01 3 (specimen) PM CDT 11:05 PM CDT Julito Yuen [facility] LAB - BLOOD ORDERABLES Performing Organization Address City/State/ZIP Code Phon e Number [facility] [address] [place], [place] [address] [facility] US Lower Extremity Venous Duplex Bilateral (07/19/2013 9:59 PM CDT) Anatomical Region Laterality Modality Vascular, Thigh, Leg Ultrasound Specimen (Source) Anatomical Location Collection Method / Collectio n Time Received Time / Laterality Volume Impressions 07/19/2013 10:11 PM CDT IMPRESSION: No DVT. ROSIO SOLIMAN MD Narrative 07/19/2013 10:11 PM CDT US LOWER EXTREMITY VENOUS DUPLEX BILATERAL ?? 07/19/2013 9:59 PM HISTORY: Pulmonary embolus. Evaluate for DVT. COMPARISON: None. FINDINGS: Bright-scale, color and Doppler spectral analysis ultrasound was performed of the legs. Compression a nd augmentation imaging was performed. There is no evidence for deep venous thr ombosis. The veins compress and augment normally. ? Procedure Note Rosio Soliman MD - 07/19/2013Form atting of this note might be different from the original. US LOWER EXTREMITY VENOUS DUPLEX BILATER AL 07/19/2013 9:59 PM HISTORY: Pulmonary embolus. Evaluate for DVT. COMPARISON: None. FINDINGS: Bright-scale, color and Doppler spectral analysis ultrasound was performed of the legs. Compression a nd augmentation imaging was performed. There is no evidence for deep venous thr ombosis. The veins compress and augment normally. IMPRESSION IMPRESSION: No DVT. ROSIO SOLIMAN MD Natalie Azar PA-C IMG US ORDERABLES (ABNORMAL) Homocysteine (07/19/2013 8:24 PM CDT) [facility] Method Time Signature Homocysteine 13.4 (H) 4.0 [facility] umol/L 12.0 [place] umol/L [facility] Comment: Mildly elevated plasma homocysteine leve ls could be due to (1) heterozygosity of cystathionine beta-synthase (CBS) gene defect (2) defects involving the remethylation pathway or (3) other non- specific causes such as renal failure. Further workup including methionine diana ding, Vitamin B6, Vitamin B12, folate, transcobalamin and C677T mutation in th e methylene tetrahydrofolate reductase gene are recommended if clinically neisha anted. Jeanine Badillo M.D., Ph.D. Specimen Anatomical Collection Method Collection Time Receive d Time (Source) Location / / Volume Laterality Blood specimen 07/19/2013 8:24 PM 013 8:31 (specimen) CDT PM CDT Natalie Azar PA-C LAB - BLOOD ORDERABLES Performing Organization Address City/State/ZIP Code Phon e Number [facility] [address] [place], [place] [id number] [place] [address] LABS Lupus panel (07/19/2013 8:24 PM CDT) Component Value Ref Test Analysis Performed At [facility] Range Method Time Signature Lupus Result Negative NEG [facility] (Note) [place] COMMENTS: [facility] INR is prolonged. APTT is prolonged ??and it shortened, but did not fully angus ect after hepzyme treatment. APTT on hepzymed plasma is prolonged, but mixing study shows complete correction. DRVVT Screen is normal. The Thrombin Time is prolonged and it shortened after hepzym e treatment. NEGATIVE TEST; A LUPUS ANTICOAGULANT WAS NOT DETECTED IN THI S SPECIMEN WITHIN THE LIMITS OF THE TESTING REPERTOIRE. 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 When the INR is prolonged due to warfarin, factors 2, 7, 9, and 10 (factors II, VII, IX, and X) are expected to be decreased an d may explain the mixing result. However, if the patient is not on warfarin, recommend checking factor levels. ??Clinical corre lation is recommended. The response to hepzyme treatment is consistent with heparin in the specimen. Joselyn Gutierrez M.D. ??[phone] 07/21/2013 INR = 1.20 N = 0.86-1.14 ??(No additional charge) Pre PTT = >180 N = 34-47 sec ?? (No additional charge) TT ??= >60.0 N = 13.0-19.0 sec ??(No additional charge) TT Post Hepzyme ??= 19.5 sec The following was done on hepzymed plasma: APTT'S: ?? Seconds Reagent = Stago LA Normal ??= 41 Patient ??= 48 1:2 Mix ??= 42 Reference = 34-47 The following was done on non-hepzymed plasma: DILUTE JALEN VIPER VENOM TEST: DRVVT Screen Ratio = 1.17 Normal = <1.21 Specimen Anatomical Collection Method Collection Time Receive d Time (Source) Location / / Volume Laterality Blood specimen 07/19/2013 8:24 PM 013 8:31 (specimen) CDT PM CDT Natalie Azar PA-C LAB - BLOOD ORDERABLES Performing Organization Address City/State/ZIP Code Phon e Number [phone] [place] [address] LABS (ABNORMAL) Antithrombin III (07/19/2013 8:24 PM CDT) [facility] Method Time Signature Antithrombin III 81 (L) 83 - 125 % [facility] Chromogenic [facility] Comment: (Note) This patient has a decreased antithrombi n activity suggesting congenital deficiency or acquired antith rombin deficiency. ??Acquired causes of antithrombin deficiency includ e liver disease, malnutrition, premature infancy, ??infla mmatory bowel disease, extensive camacho, disseminated intrvascul ar coagulation, sepsis, acute hemolytic transfusion reaction, thrombot ic microangiopathy, malignancy, L asparaginase therapy, acut e thrombotic event, nephrotic syndrome, and plasma exchange with album in. ??Clinical correlation is recommended. Joselyn Gutierrez M.D. ??[phone] 07/20/2013, 14:53 Specimen Anatomical Collection Method Collection Time Receive d Time (Source) Location / / Volume Laterality Blood specimen 07/19/2013 8:24 PM 013 8:31 (specimen) CDT PM CDT Natalie Retanau PA-C LAB - BLOOD ORDERABLES Performing Organization Address City/[facility]/ZIP Code Phon e Number [address] LABS Protein S free (07/19/2013 8:24 PM CDT) P athologist Signature Protein S Free 82 55 - 125 % [facility] LABS Comment: Analyte Specific Reagents (ASRs) are use d in many laboratory tests necessary for standard medical care and generally do not require FDA approval. ??This test was developed and its performance character istics determined by [facility]. ? ?It has not been cleared or approved by the [place] Food and Drug Administration. Specimen Anatomical Collection Method Collection Time Receive d Time (Source) Location / / Volume Laterality Blood specimen 07/19/2013 8:24 PM 013 8:31 (specimen) CDT PM CDT Natalie Mohan Doe PA-C LAB - BLOOD ORDERABLES Performing Organization Address City/[facility]/ZIP Code Phon e Number [address] LABS Protein C chromogenic (07/19/2013 8:24 PM CDT) athologist Signature Prot C 87 70 - 130 % [facility] Chromogenic [facility] Specimen Anatomical Collection Method Collection Time Receive d Time (Source) Location / / Volume Laterality Blood specimen 07/19/2013 8:24 PM 013 8:31 (specimen) CDT PM CDT Natalie Mohan Doe PA-C LAB - BLOOD ORDERABLES Performing Organization Address City/[facility]/ZIP Code Phon e Number [address] LABS Factor 2 and 5 mutation analysis (07/19/2013 8:15 PM CDT) Component Value Ref Test Analysis Performed At [facility] gist Range Method Time Signature Copath Report Patient Name: LYNNE GONSALES MR#: [id number] Specimen #: [id number] Collected: 07/19/2013 20:15 Received: 07/19/2013 22:59 Reported: 07/23/2013 12:00 Ordering Phy(s): BRYAN GIVENS TEST(S) REQUESTED: Factor 5 Leiden and Factor 2 by PCR SPECIMEN DESCRIPTION: Blood CLINICAL COMMENTS: Acute PE METHODOLOGY: ?? The regions of genomic DNA containing the G1 691A Factor 5 gene mutation (Factor V Leiden) and the Factor 2(Prothrombin O30973S) gene mutation were simultaneously amplified using the polyme rase chain reaction. ??The amplified products were digested with restri ction endonuclease TaqI and products were analyzed by gel electrop horesis. RESULTS: Factor V 1691G>A (Leiden) ??RESULTS: Mutation analyzed: ? 1691G>A Factor V 1691G>A (Leiden) ??Interpretation: ?ABSENT Factor V 1691G>A (Leiden) mutation ??genotype: ?G/G FACTOR 2/PROTHROMBIN RESULTS: Mutation analyzed: ? 02403B>A Factor 2 Mutation Interpretation: ?ABSENT Factor 2 Mutation genotype: ?G/G INTERPRETATION: The patient is negative for the Factor V 1691G>A (Leiden) an d negative for the Factor 2 mutation. This test was developed and its performance determined by [facility] ??[facility]. It has not been cleared or approved by the U.S. Food and Redd g Administration. ??The FDA has determined that such clearance or approval is not necessary. ??Pursuant to the requirements of CLIA'88, this laboratory has established and verified the test's accuracy and precision. ??This test is used for clinical purposes. Electronically Signed Out By: Jada Jaramillo MD TESTING LAB LOCATION: [address] [address] COLLECTION SITE: Client: ??[facility] Location: ??RHMS3 (R) Specimen Anatomical Collection Method Collection Time Receive d Time (Source) Location / / Volume Laterality 07/19/2013 8:15 PM 3 CDT 10:59 PM CDT Bryan Givens DO LAB - GENOMICS Performing Organization Address City/State/ZIP Code Phon e Number COPATH Chest CT, IV contrast only - PE protocol (07/19/2013 6:07 PM CDT) Anatomical Region Laterality Modality Chest, SUBRAD CT BODY, UMP CT CHEST Comp uted Tomography Specimen (Source) Anatomical Location Collection Method / Collectio n Time Received Time / Laterality Volume Impressions 07/19/2013 7:43 PM CDT IMPRESSION: ?? 1. Bilateral pulmonary emboli, right gre ater than left. 2. Possible right heart strain. Dr. Paris was contacted by me on at 6:15 p.m. regarding the abnormal finding of pulmon roland emboli and verbalized understanding of the abnormal finding. ROSIO SOLIMAN MD Narrative 07/19/2013 7:[address] CHEST PULMONARY EMBOLISM WITH CONTRAST 07/19/2013 6:07 PM ?? HISTORY: Shortness of breath. Elevated D -dimer. TECHNIQUE: CT chest with intravenous con trast using the pulmonary embolus protocol. 97 mL Optiray-320. COMPARISON: None. FINDINGS: Evaluation of the pulmonary ar terial system shows large central pulmonary emboli extending into all three lobes of the right lung. There are smaller emboli in the le ft upper lobe and left lower lobe pulmonary arteries. The right ventr icle is at least as large as the left ventricle suggesting right hear t strain. There is no mediastinal, hilar or axillary lymph nod e enlargement. There are a few coronary artery atherosclerotic calcific ations. No aortic aneurysm or dissection. There is minimal atelectasis or scarring in the lower lobes. Lungs otherwise clear. No pleural effusion. Images through the upper abdomen show no acute abnormalitie s. There are postoperative changes in the stomach. Procedure Note Rosio Soliman MD - 07/19/2013Form atting of this note might be different from the original. CT CHEST PULMONARY EMBOLISM WITH CONTRAS T 07/19/2013 6:07 PM HISTORY: Shortness of breath. Elevated D -dimer. TECHNIQUE: CT chest with intravenous con trast using the pulmonary embolus protocol. 97 mL Optiray-320. COMPARISON: None. FINDINGS: Evaluation of the pulmonary ar terial system shows large central pulmonary emboli extending into all three lobes of the right lung. There are smaller emboli in the le ft upper lobe and left lower lobe pulmonary arteries. The right ventr icle is at least as large as the left ventricle suggesting right hear t strain. There is no mediastinal, hilar or axillary lymph nod e enlargement. There are a few coronary artery atherosclerotic calcific ations. No aortic aneurysm or dissection. There is minimal atelectasis or scarring in the lower lobes. Lungs otherwise clear. No pleural effusion. Images through the upper abdomen show no acute abnormalitie s. There are postoperative changes in the stomach. IMPRESSION IMPRESSION: 1. Bilateral pulmonary emboli, right gre ater than left. 2. Possible right heart strain. Dr. Paris was contacted by me on at 6:15 p.m. regarding the abnormal finding of pulmon roland emboli and verbalized understanding of the abnormal finding. ROSIO SOLIMAN MD Murali Paris MD IMG CT ORDERABLES Chest XR, PA & LAT (07/19/2013 4:22 PM CDT) Anatomical Region Laterality Modality Chest Computed Radiography Specimen (Source) Anatomical Location Collection Method / Collectio n Time Received Time / Laterality Volume Impressions 07/19/2013 5:00 PM CDT IMPRESSION: Negative chest. ITZ ALVAREZ MD Narrative 07/19/2013 5:00 PM CDT XR CHEST 2 VW ??07/19/2013 4:22 PM HISTORY: ??Short of breath. COMPARISON: None. FINDINGS: Heart size normal. Lungs clear . Mild hypertrophic changes thoracic spine. Procedure Note Itz Alvarez MD - 07/19/2013Forma tting of this note might be different from the original. XR CHEST 2 VW 07/19/2013 4:22 PM HISTORY: Short of breath. COMPARISON: None. FINDINGS: Heart size normal. Lungs clear . Mild hypertrophic changes thoracic spine. IMPRESSION IMPRESSION: Negative chest. ITZ ALVAREZ MD Murali Paris MD IMG DIAGNOSTIC IMAGING ORDER SALEEM INR (07/19/2013 3:55 PM CDT) athologist Signature INR 0.88 0.86 - [address].14 [facility] Specimen Anatomical Collection Method Collection Time Receive d Time (Source) Location / / Volume Laterality 07/19/2013 3:55 PM 3 4:21 CDT PM CDT Murali Paris MD LAB - BLOOD ORDERABLES Performing Organization Address City/[facility]/ZIP Code Phon e Number M [facility] [address], [place] [address] [facility] LAB (ABNORMAL) D dimer quantitative (07/19/2013 3:55 PM CDT) athologist Signature D Dimer 19.5 (H) 0.0 - 0.50 [place] ug/ml [facility] Specimen Anatomical Collection Method Collection Time Receive d Time (Source) Location / / Volume Laterality 07/19/2013 3:55 PM 3 4:21 CDT PM CDT Murali Paris MD LAB - BLOOD ORDERABLES Performing Organization Address City/[facility]/ZIP Code Phon e Number M [facility] [address], [place] [address] [facility] Troponin I (07/19/2013 3:55 PM CDT) athologist Signature Troponin I ES <0.012 0.000 [facility] 0.034 ug/L [facility] Specimen Anatomical Collection Method Collection Time Receive d Time (Source) Location / / Volume Laterality Blood specimen 07/19/2013 3:55 PM 013 4:21 (specimen) CDT PM CDT Murali Paris MD LAB - BLOOD ORDERABLES Performing Organization Address City/[facility]/ZIP [facility] Phon e Number M [facility] [address] [place], [place] [address] [facility] Basic metabolic panel (07/19/2013 3:55 PM CDT) athologist Signature Sodium 142 133 - 144 [place] mmol/L [facility] Potassium 4.1 3.4 - 5.3 [place] mmol/L [facility] Chloride 106 94 - 109 [place] mmol/L [facility] Carbon Dioxide 24 20 - 32 [place] mmol/L [facility] Anion Gap 12 6 - 17 [place] mmol/L [facility] Glucose 90 60 - 99 [place] mg/dL [facility] Urea Nitrogen 17 7 - 30 [place] mg/dL [facility] Creatinine 0.82 0.52 - [facility] 1.04 mg/dL [facility] GFR Estimate 69 >60 [place] mL/min/1.[address] LAB GFR Estimate If 83 >60 [place] Black mL/min/[address] [place] [address] LAB Calcium 9.0 8.5 - 10.4 [place] mg/dL [facility] Specimen Anatomical Collection Method Collection Time Receive d Time (Source) Location / / Volume Laterality Blood specimen 07/19/2013 3:55 PM 013 4:21 (specimen) CDT PM CDT Murali Paris MD LAB - BLOOD ORDERABLES Performing Organization Address City/State/ZIP Code Phon e Number M [place] [address], [place] [address] [facility] LAB (ABNORMAL) CBC with platelets differential (07/19/2013 3:55 PM CDT) [facility] gist Method Time Signature WBC 7.2 4.0 - [place] 11.0 [facility] 10e9/[facility] RBC Count 4.40 3.8 - 5.2 [place] 10e12/L [facility] Hemoglobin 12.4 11.7 - [facility] 15.7 g/dL [facility] Hematocrit 38.2 35.0 - [facility] 47.0 % [facility] MCV 87 78 - 100 [facility] LAB MCH 28.2 26.5 - [facility] 33.0 pg [facility] MCHC 32.5 31.5 - [place] 36.5 g/dL [facility] RDW 15.8 (H) 10.0 - [facility] 15.0 % [facility] Platelet Count 187 150 - 450 [place] 10e9/L [facility] Diff Method Automated [facility] LAB % Neutrophils 54.7 % [facility] % Lymphocytes 29.9 % [facility] % Monocytes 10.3 % [facility] % Eosinophils 4.7 % [facility] % Basophils 0.3 % [facility] % Immature 0.1 % [place] Granulocytes [facility] Absolute 3.9 1.6 - 8.3 [place] Neutrophil 10e9/L [facility] Absolute 2.2 0.8 - 5.3 [place] Lymphocytes 10e9[facility] Absolute 0.7 0.0 - 1.3 [place] Monocytes 10e9/[facility] LAB Absolute 0.3 0.0 - 0.7 [place] Eosinophils 10e9/L [facility] Absolute 0.0 0.0 - 0.2 [place] Basophils [address] [place] [address] LAB Abs Immature 0.0 0 - 0.4 [place] Granulocytes [address] [place] [address] LAB Specimen Anatomical Collection Method Collection Time Receive d Time (Source) Location / / Volume Laterality Blood specimen 07/19/2013 3:55 PM 013 4:21 (specimen) CDT PM CDT Murali Paris MD LAB - BLOOD ORDERABLES Performing Organization Address City/State/ZIP Code Phon e Number [place] [address] [place] [address] [facility] LAB EKG 12 lead (07/19/2013 3:20 PM CDT) [facility] gist Method Time Signature Interpretation ECG Click View RADIOLOGY Image link RESULTS to view waveform and result Specimen (Source) Anatomical Collection Method Collection Time Re ceived Time Location / / Volume Laterality 07/19/2013 3:20 PM CDT Murali Paris MD ECG ORDERABLES Performing Organization Address City/State/ZIP Code Phon e Number RADIOLOGY RESULTS documented in this encounter Visit Diagnoses Diagnosis PE (pulmonary embolism) - Primary Other pulmonary embolism and infarction Acute pulmonary embolism (H) Other pulmonary embolism and infarction documented in this encounter Administered Medications Inactive Administered Medications - up to 3 most recent administrations Medication Order MAR Action Action Date Dose Rate Site - MEDICATION INSTRUCTIONS - Given 07/20/2013 8:56 AM CDT ONCE, 1 dose, On Fri07/20/13 at 0730, Stop heparin fusion for 30 minutes aspirin chewable tablet 324 mg Given 07/19/2013 4:06 PM CDT 324 mg 324 mg, Oral, ONCE, On Fri07/19/13 at 1545, For 1 dose, Hold if patient allergy to aspirin, or if aspirin has been given during this episode. citalopram (celeXA) tablet 40 mg Given 07/22/2013 9:32 AM CDT 40 mg 40 mg, Oral, DAILY, First dose on Fri07/20/13 at 0900 Given 07/21/2013 9:26 AM CDT 40 mg Given 07/20/2013 8:18 AM CDT 40 mg enoxaparin (LOVENOX) injection 105 mg Given 07/22/2013 6:24 AM CDT 105 mg 105 mg (1 mg/kg ? 107 kg), Subcutaneous, EVERY 12 HOURS, First dose on Fri07/21/13 at 1800 Given 07/21/2013 6:02 PM CDT 105 mg heparin bolus dose from syringe/bag Given 07/19/2013 6:51 PM CDT 6,000 Units 6,000 Units 6,000 Units, Intravenous, ONCE, On Fri07/19/13 at 1830, For 1 dose heparin drip 25,000 Rate/Dose Verify 07/19/2013 10:00 1,350 Units/hr 13.5 mL/hr units in D5W 250 mL PM CDT Intravenous, at 13.5 mL/hr, CONTINUOUS, Starting on Fri07/19/13 at 1830 Rate/Dose Verify 07/19/2013 8:10 PM CDT 1,350 Units/hr 13.5 mL/hr New Bag 07/19/2013 6:51 PM CDT 1,350 Units/hr 13.5 mL/hr heparin drip 25,000 Rate/Dose Change 07/20/2013 12:17 1,200 Units/hr 12 mL/hr units in D5W 250 mL AM CDT Intravenous, at 12 mL/hr, CONTINUOUS, Starting on Fri07/20/13 at 0000, FOR 10A=0.92, stop for 30min, then resume at 1200 units / hr, recheck 10a with AM labs heparin drip 25,000 units in New Bag 07/21/2013 6:16 AM 1,050 Units/hr 10.5 mL/hr D5W 250 mL CDT Intravenous, at 10.5 mL/hr, CONTINUOUS, Starting on Fri07/20/13 at 0800, For Heparin 10a=0.6, continue at the rate above. Recheck INR AM 07/21/13. Rate/Dose Verify 07/21/2013 12:16 AM CDT 1,050 Units/hr 10.5 mL/hr Rate/Dose Verify 07/20/2013 10:00 PM CDT 1,050 Units/hr 10.5 mL/hr heparin drip 25,000 Rate/Dose Verify 07/21/2013 9:27 1,050 Units/hr 1 0.5 mL/hr units in D5W 250 mL AM CDT Intravenous, at 10.5 mL/hr, CONTINUOUS, Starting on Fri07/21/13 at 0900, Stop heparin drip at 1600. Lovenox to be started today at 1800. ioversol (OPTIRAY 320) iv solution 68% 1 00 mL Given 07/19/2013 5:59 PM CDT 97 mLs 100 mL, Intravenous, ONCE, On Fri07/19/13 at 1800, For 1 dose levothyroxine (SYNTHROID, LEVOTHROID) tablet Given 9:25 AM CDT 175 mcg 175 mcg 175 mcg, Oral, EVERY OTHER DAY, First dose on Fri07/21/13 at 0900 levothyroxine (SYNTHROID,LEVOTHROID) tablet Given 06/30 6:24 AM CDT 200 mcg 200 mcg 200 mcg, Oral, EVERY OTHER DAY, First dose on Fri07/20/13 at 0900 Given 07/20/2013 8:19 AM CDT 200 mcg metoprolol (TOPROL-XL) 24 hr tablet 25 m g Given 07/22/2013 9:32 AM CDT 25 mg 25 mg, Oral, DAILY, First dose on Fri07/20/13 at 0900 Given 07/21/2013 9:25 AM CDT 25 mg Given 07/20/2013 8:18 AM CDT 25 mg senna-docusate (SENOKOT-S;PERICOLACE) Given 07/20/2013 8:18 AM C DT 2 tablets 8.6-50 MG per tablet 1-2 tablet 1-2 tablet, Oral, 2 TIMES DAILY, First dose on Fri07/19/13 at 2100, Start with 1 tablet PO BID, If no bowel movement in 24 hours, increase to 2 tablets po BID. Hold for loose stools. Given 07/19/2013 8:57 PM CDT 1 tablet simvastatin (ZOCOR) tablet 20 mg Given 07/22/2013 9:32 AM CDT 20 mg 20 mg, Oral, EVERY MORNING, First dose on Fri07/20/13 at 0900 Given 07/21/2013 9:25 AM CDT 20 mg Given 07/20/2013 8:18 AM CDT 20 mg sodium chloride (PF) 0.9% PF flush 3 mL Given 07/22/2013 9:35 AM CDT 3 mLs 3 mL, Intravenous, EVERY 8 HOURS, First dose on Fri07/20/13 at 0000, And Q1H PRN, to lock peripheral IV dormant line. Given 07/22/2013 5:14 AM CDT 3 mLs sodium chloride 0.9 % BOLUS 1,000 mL New Bag 07/19/2013 5:59 PM CDT 99 mLs Intravenous, 1,000 mL, ONCE, On Fri07/19/13 at 1800, For 1 dose warfarin (COUMADIN) tablet 5 mg Given 07/19/2013 8:59 PM CDT 5 mg 5 mg, Oral, ONCE, On Fri07/19/13 at 2100, For 1 dose warfarin (COUMADIN) tablet 5 mg Given 07/20/2013 5:23 PM CDT 5 mg 5 mg, Oral, ONCE AT 6PM, On Fri07/20/13 at 1800, For 1 dose warfarin (COUMADIN) tablet 6 mg Given 07/21/2013 6:01 PM CDT 6 mg 6 mg, Oral, ONCE AT 6PM, On Fri07/21/13 at 1800, For 1 dose documented in this encounter Active and Recently Administered Medications Times are shown in CDT. Scheduled Medication Order 07/20/2013 07/21/2013 07/22/2013 - MEDICATION INSTRUCTIONS - (COMPLETED) 0820 (Hold - P rovider: Sparkle Ann RN - Reason: Order to hold this dose)0856 (Given - Provider: Sparkle Ann RN - Comment: restarted hep) ONCE, 1 dose, Fri07/20/13 at 0730, Stop heparin fusion for 30 m inutes citalopram (celeXA) tablet 40 mg (CANCELED) 0818 (Give n - Provider: Sparkle Ann RN) 0926 (Given - Provider: Margaret Swan, MUSTAPHA) 0932 (Given - Provider: Sparlke Ann RN) 40 mg, Oral, DAILY, First dose on Fri07/20/13 at 0900 enoxaparin (LOVENOX) injection 105 mg 18 02 (Given - Provider: Pippa Baker RN) 0624 (Given - Provider: Sean Cota RN - Comment: total dose charted) 1 mg/kg ? 107 kg = 105 mg, Subcutaneous, EVERY 12 HOURS, First dose on Fri07/21/13 at 1800 levothyroxine (SYNTHROID, LEVOTHROID) tablet 175 mcg (CANCEL ED) 09 (Given - Provider: Margaret Swan RN) 175 mcg, Oral, EVERY OTHER DAY, First dose on Fri07/21/13 at 09 00 levothyroxine (SYNTHROID,LEVOTHROID) tablet 200 mcg (C ANCELED) 0819 (Given - Provider: Sparkle Ann RN) 0624 (Given - Provider: Danial Cota RN) 200 mcg, Oral, EVERY OTHER DAY, First dose on Fri07/20/13 at 09 00 metoprolol (TOPROL-XL) 24 hr tablet 25 mg (CANCELED) 0 818 (Given - Provider: Sparkle Ann RN) 0925 (Given - Provider: Margaret Swan RN) 0932 (Given - Provider: Sparkle Ann RN) 25 mg, Oral, DAILY, First dose on Fri07/20/13 at 0900 senna-docusate (SENOKOT-S;PERICOLACE) 8. 6-50 MG per tablet 1-2 tablet (CANCELED) 0818 (Given - Provider: Chelsea Hauser)2014 (Not Given - Provider: Qian Sanders RN - Reason: Patient/family refused) 09 (Not Given - Provider: Margaret Swan RN - Reason: Patient/family refused)2020 (Not Given - Provider: Valerie Ahmadi LPN - Reason: Patient/family refused) 0934 (Not Given - Provider: Sparkle Ann RN - Reason: Patient/family refused) 1-2 tablet, Oral, 2 TIMES DAILY, First d ose on Fri07/19/13 at 2100, Start with 1 tablet PO BID, If no bowel movement in 24 hours, increase to 2 tablets po BID. Hold for loose stools. simvastatin (ZOCOR) tablet 20 mg (CANCELED) 0818 (Give n - Provider: Sparkle Ann, MUSTAPHA) 0925 (Given - Provider: Margaret Swan, MUSTAPHA) 0932 (Given - Provider: Sparkle Ann, MUSTAPHA) 20 mg, Oral, EVERY MORNING, First dose on Fri07/20/13 at 0900 sodium chloride (PF) 0.9% PF flush 3 mL (CANCELED) 082 0 (Not Given - Provider: Sparkle Ann RN - Reason: IV Infusing)1622 (Not Given - Provider: Qian Sanders RN - Reason: IV Infusing) 0038 (Not Given - Provider: Enedina ma RN - Reason: IV Infusing)0928 (Not Given - Provider: Margaret Swan RN - Reason: IV Infusing)1550 (Not Given - Provider: Pippa Baker, MUSTAPHA - Reason: IV Infusing) 0514 (Given - Provider: Sean Cota, MUSTAPHA)0935 (Given - Provider: Sparkle Ann RN) 3 mL, Intravenous, EVERY 8 HOURS, First dose on Fri07/20/13 at 0000, And Q1H PRN, to lock peripheral IV dormant line. warfarin (COUMADIN) tablet 5 mg (COMPLETED) 172 (Give n - Provider: Vani Hernandez RN) 5 mg, Oral, ONCE AT 6PM, Fri07/20/13 at 1800, For 1 dose warfarin (COUMADIN) tablet 6 mg (COMPLETED) 180 (Given - Provider: Pippa Baker, MUSTAPHA) 6 mg, Oral, ONCE AT 6PM, On Fri07/21/13 at 1800, For 1 dose Continuous Medication Order 07/20/2013 07/21/2013 07/22/2013 heparin drip 25,000 units in D5W 250 mL (CANCELED) 001 7 (Rate/Dose Change - Provider: Natalie Valerio RN) 1,200 Units/hr = 12 mL/hr, Intravenous, at 12 mL/hr, CONTINUOUS, Starting Fri07/20/13 at 0000, FOR 10A=0.92, stop for 30min, then resume at 1200 units / hr, recheck 10a with AM labs heparin drip 25,000 units in D5W 250 mL (CANCELED) 073 2 (New Bag - Provider: Sparkle Ann, RN)0855 (Restarted - Provider: Sparkle Ann, MUSTAPHA)1621 (Rate/Dose Verify - Provider: Qian Sanders, MUSTAPHA)2200 (Rate/Dose Verify - Provider: Qian Sanders RN) 0016 (Rate/Dose Verify - Provider: Enedina Hidalgo, MUSTAPHA)0616 (New Bag - Provider: Enedina Hidalgo, MUSTAPHA) 1,050 Units/hr = 10.5 mL/hr, Intravenous , at 10.5 mL/hr, CONTINUOUS, Starting Fri07/20/13 at 0800, For Heparin 10a=0.6, continue at the rate above. Recheck INR AM 07/21/13. heparin drip 25,000 units in D5W 250 mL () 0927 (Rate/Dose Verify - Provider: Margaret Swan RN)1609 (Stopped - Provider: Pippa Baker, MUSTAPHA) 1,050 Units/hr = 10.5 mL/hr, Intravenous , at 10.5 mL/hr, CONTINUOUS, Starting Fri07/21/13 at 0900, Stop heparin drip at 1600. Lovenox to be started today at 1800. documented in this encounter Care Teams Social Work Lecturer Relationship Specialty Start Date End Date Miryam Rob PCP - General Internal Medicine 07/19/13 [facility] [address] [place] [address] documented as of this encounter
--- OUTSIDE RECORDS SUMMARY | 2022-06-10 16:15 | XMS_ITS | Encounter Summary ---
:1940 Author Organization [place] Address [address] [place] [address]. [place] [address] Care Team Providers Name Role Phone Miryam Rob Primary Care Provider Encounter Details Date Type Department Care Team Description 07/20/2013 Historic Results [facility] Heart Unknown, [address] [place] [address] Social History Tobacco Use Types Packs/Day Years [...] Name Priority Date/Time Associated Diagnosis Comme nts ECHO CARDIAC - HIM SCAN 07/20/2013 12:00 AM CDT - ARCHIVE documented in this encounter Results ECHO CARDIAC - HIM SCAN - ARCHIVE (07/20/2013 12:00 AM CDT) Specimen (Source) Anatomical Location Collection Method / Collectio n Time Received Time / Laterality Volume 07/20/2013 Narrative This result has an attachment that is no t available. Provider Scan CV ECHO ORDERABLES documented in this encounter Visit Diagnoses Not on filedocumented in this encounter Care Teams Estate Attorney Relationship Specialty Start Date End Date Miryam Rob PCP - General Internal Medicine 07/19/13 [facility] [address] [place] [address] (work) documented as of this encounter
[2022-06-10 19:15] LABS: Vitamin D 25 Hydroxy* 17 ng/mL (30-80)
[2022-06-10 19:33] LABS: Ferritin* 9.6 ng/mL (11.1-264.0)
[2022-06-10 19:45] LABS: Vitamin B12* 166 pg/mL (243-894)
[2022-06-12 06:46] LABS: Free T4 Free Thyroxine* 1.24 ng/dL (0.70-1.85)
== END 2022-06-10 16:10 | disposition home or self-care (01) ==
PROVIDERS: PCP Internal Medicine; Visit Provider Internal Medicine
DX: E61.1 Iron deficiency (principal); E53.8 Deficiency of other specified B group vitamins; E50.9 Vitamin A deficiency, unspecified; E55.9 Vitamin D deficiency, unspecified; E66.01 Morbid (severe) obesity due to excess calories; E03.9 Hypothyroidism, unspecified; E78.5 Hyperlipidemia, unspecified; Z98.84 Bariatric surgery status
CPT/HCPCS: 82306; 82607; 82728; 84439; 84443

== ENCOUNTER 2022-12-16 13:41 | Outpatient (CLI) | payer MEDICARE, SELFPAY | END 2022-12-16 13:42 | disposition home or self-care (01) | LOC: NFLDREF 12-17 20:07 | PROVIDERS: PCP Internal Medicine; Referring Provider Internal Medicine; Visit Provider Internal Medicine | DX: Z98.84 Bariatric surgery status (principal) | CPT/HCPCS: 80053; 80061; 82306; 82525; 82607; 82728; 82747; 83735; 84439; 84443; 84446; 84590; 84597; 84630 ==

== ENCOUNTER 2023-06-16 15:20 | Outpatient (CLI) | payer MEDICARE, SELFPAY | END 2023-06-16 15:21 | disposition home or self-care (01) | PROVIDERS: PCP Internal Medicine; Visit Provider Internal Medicine | DX: E66.01 Morbid (severe) obesity due to excess calories (principal); D50.9 Iron deficiency anemia, unspecified; R79.89 Other specified abnormal findings of blood chemistry; Z98.84 Bariatric surgery status; I48.19 Other persistent atrial fibrillation; Z79.01 Long term (current) use of anticoagulants; Z86.711 Personal history of pulmonary embolism; E03.9 Hypothyroidism, unspecified; E53.8 Deficiency of other specified B group vitamins; G31.84 Mild cognitive impairment of uncertain or unknown etiology; E55.9 Vitamin D deficiency, unspecified; R55 Syncope and collapse; Z13.21 Encounter for screening for nutritional disorder | CPT/HCPCS: 80053; 82306; 82525; 82607; 82728; 82747; 83735; 84443; 84446; 84590; 84597; 84630 ==

== ENCOUNTER 2023-08-18 12:34 | Outpatient (CLI) | payer MEDICARE, SELFPAY | END 2023-08-18 12:35 | disposition home or self-care (01) | PROVIDERS: PCP Internal Medicine; Visit Provider Internal Medicine | DX: R55 Syncope and collapse (principal); I51.7 Cardiomegaly; I34.0 Nonrheumatic mitral (valve) insufficiency; I07.1 Rheumatic tricuspid insufficiency | CPT/HCPCS: 93306 ==

== ENCOUNTER 2023-12-23 12:56 | Outpatient (CLI) | payer MEDICARE, SELFPAY | END 2023-12-23 12:57 | disposition home or self-care (01) | PROVIDERS: PCP Internal Medicine; Visit Provider Internal Medicine | DX: E66.01 Morbid (severe) obesity due to excess calories (principal); E53.8 Deficiency of other specified B group vitamins; E50.9 Vitamin A deficiency, unspecified; E61.1 Iron deficiency; E03.9 Hypothyroidism, unspecified; E78.5 Hyperlipidemia, unspecified | CPT/HCPCS: 82306; 82607; 82728; 84439; 84443; 84590 ==

== ENCOUNTER 2024-06-22 12:57 | Outpatient (REF) | payer MEDICARE, SELFPAY ==
--- OUTSIDE RECORDS SUMMARY | 2024-06-22 13:00 | XMS_ITS | Clinical Summary ---
Author Organization [place] Address [address] [place] [address] Care Team Providers Care Speech And Hearing Director Name Role Phone Miryam Rob MD Primary Care Provider Allergies No known active allergies Medications Medication Sig Dispensed Refills Start Date End Date Status LEVOTHYROXINE SODIUM PO Take 175 mcg by mouth every other day . Alternates 175 mcg with 200 mcg qod Active LEVOTHYROXINE SODIUM PO Take 200 mcg by mouth every other day .Alternates 175 mcg with 200 mcg qod Active METOPROLOL SUCCINATE ER PO Take 25 mg by mouth Active Simvastatin (ZOCOR PO) Take 20 mg by mouth every morning Active Citalopram Hydrobromide (CELEXA PO) Take 40 mg by mouth daily Active warfarin (COUMADIN) 2.5 MG tabletIndications:PE (pulmonary embolism) Take 2 tablets (5 mg) by mouth daily 30 tablet 0 07/22/2013 Active Active Problems Problem Noted Date Diagnosed Date Acute pulmonary embolism 07/19/2013 Social History Tobacco Use Types Packs/Day Years Used Date Smoking Tobacco: Never Alcohol Use Standard Drinks/Week Comments Yes 0 (1 standard drink = 0.6 oz pur e alcohol) socially Adolescent Education Answer Date Record ed Getting School Help Needed Not on file 06/20 Sex and Gender Information Value Date Recorded Sex Assigned at Not on file Gender Identity Not on file Sexual Orientation Not on file Last Filed Vital Signs Vital Sign Reading Time Taken Comments Blood Pressure 123/82 02/24/2019 7:31 PM CDT Pulse 85 07/19/2013 3:22 PM CDT Temperature 36.2 ??C (97.1 ??F) 02/24/2019 7:31 PM CD T Respiratory Rate 20 02/24/2019 7:31 PM CDT Oxygen Saturation 98% 02/24/2019 7:31 PM CDT Inhaled Oxygen Concentration - - Weight 99.8 kg (220 lb) 02/24/2019 7:31 PM CDT Height 162.6 cm (5' 4) 02/24/2019 7:31 PM CDT Body Mass Index 37.76 02/24/2019 7:31 PM CDT Plan of Treatment Not on file Advance Directives For more information, please contact: [phone] * Full Code (Latest Code Status on File) Date Activated Date Inactivated Comments 07/19/2013 8:09 PM 07/22/2013 3:01 PM Care Teams Speech And Hearing Director Relationship Specialty Start Date End Date Miryam Rob MD [facility] [address] [place] [address] PCP - General Internal Medicine 07/19/13
--- OUTSIDE RECORDS SUMMARY | 2024-06-22 13:00 | XMS_ITS ---
Author Organization [facility] Address [address] [place] [address] Care Team Providers Care Head Of Art Name Role Phone Unavailable Unavailable Unavailable Surgery Details Not on file Complications Check Surgery Details section. Procedure Estimated Blood Loss Check Surgery Details section. Procedure Findings Check Surgery Details section. Procedure Specimens Taken Check Surgery Details section.
--- OUTSIDE RECORDS SUMMARY | 2024-06-22 13:00 | XMS_ITS | Clinical Summary ---
Author Organization [facility] Address [place], [place] [address] Care Team Providers Care Pond Scaler Name Role Phone Miryam Rob MD Primary Care Provider +1- [phone] Allergies Active Allergy Reactions Criticality Noted Date Comments Dust Mites 08/14/2010 Sneezing, itchy eyes Pollen Extracts 08/14/2010 Birch trees-itchy and runny eyes and some shortness of breath Tomato (Solanum Lycopersicum) 08/14/2010 Facial swelling Unlisted Allergen (Include Detail In Comments) 08/14/2010 Dog and cat-itchy eyes and runny nose and itchy skin Medications Medication Sig Dispensed Refills Start Date End Date Status MEDICATION ORDER COMPOSER B12 Injections 0 Active simvastatin (ZOCOR) 20 mg tablet Take 1 tablet by mouth at bedtime. 0 10/28/2012 Active warfarin (COUMADIN) 2.5 mg tablet Two pills five days per week and one pill for two days per week. 0 10/25/2013 Active levothyroxine (SYNTHROID) 200 mcg tablet 1 tablet once daily. 90 tablet 3 01/04/2014 Active cholecalciferol (VITAMIN D) 2,000 unit capsule Take by mouth once daily. 0 Active metoprolol (LOPRESSOR) 50 mg tablet Take 1 tablet by mouth 2 times daily. 0 07/01/2014 Active busPIRone (BUSPAR) 15 mg tabletIndications:R ecurrent major depressive disorder, in full remission (HC) Take 1 tablet by mouth BID 60 tablet. 10/09/2020 Active citalopram (CELEXA) 40 mg tabletIndications:R ecurrent major depressive disorder, in full remission (HC) TAKE 1 TABLET BY MOUTH EVERY DAY 30 Tablet 2 12/27/2020 Active Active Problems Problem Noted Date Diagnosed Date MARK (obstructive sleep apnea) 08/02/2015 Overview (08/02/2015): On cpap Pulmonary emboli 10/25/2013 Overview (10/25/2013): June 2013 Atrial fibrillation 10/25/2013 Major depression, recurrent 05/26/2012 Eating Disorder; gastric bypass in 197612/14/19 PTSD (Post-Traumatic Stress Disorder); by history (in remission) 12/13/2008 S/P COLON CANCER Personal history of colon cancer Overview (12/13/2008): Surgery and chemo in 2001 Hypothyroidism Resolved Problems Problem Noted Date Diagnosed Date Resolved Date Recurrent major depression i n complete remission 01/17/2009 05/26/2012 Moderate Recurrent Major Dep ression (hx of severe depression) 12/13/2008 01/17/2009 Major depressive disorder, r ecurrent episode, in full remission 12/13/2008 Overview (01/24/2005): Stable FIBROMYALGIA 12/13/2008 Overview (01/24/2005): '98 Social History Tobacco Use Types Packs/Day Years Used Date Smoking Tobacco: Never Smokeless Tobacco: Never Tobacco Cessation:Counseling Given: Yes Alcohol Use Standard Drinks/Week Comments Yes 0 (1 standard drink = 0.6 oz pur e alcohol) occas PHQ-2 Answer Date Recorded PHQ-2 Score 0 11/29/2018 Social Connections Answer Date Recorded Frequency of Communication with Friends and Fami ly Not on file 09/16/2023 Sex and Gender Information Value Date Recorded Sex Assigned at Not on file Gender Identity Not on file Sexual Orientation Not on file Obstetrics History Last Filed Vital Signs Vital Sign Reading Time Taken Comments Blood Pressure 165/89 06/10/2023 8:17 PM CDT Pulse 75 06/10/2023 8:17 PM CDT Temperature 36.7 ??C (98 ??F) 06/10/2023 5:17 PM CDT Respiratory Rate 18 06/10/2023 5:17 PM CDT Oxygen Saturation 98% 06/10/2023 8:17 PM CDT Inhaled Oxygen Concentration - - Weight 98 kg (216 lb) 06/10/2023 5:13 PM CDT Height 160 cm (5' 3) 06/10/2023 5:13 PM CDT Body Mass Index 38.26 06/10/2023 5:13 PM CDT Plan of Treatment Health Maintenance Due Date Last Done Comments Tdap 1953 Zoster (shingles) series for age 50+ (1 of 2) 1992 DEXA/DXA scan for age 65+ 2007 Medicare Wellness for age 65+ 2007 Pneumococcal series for age 65+ (1 of 1 - PCV) 2007 BMI (ht and wt on same day) for age 18+ 01/02/2017 01/03/2016 RSV vaccine for adults or (1 - 1-dose 75+ series) 2017 Depression screening for age 12+ 03/11/2020 03/11/2019, 08/10/2018, 11/24/2017, Additional history exists Tetanus booster 08/29/2021 08/29/2011 (Comp leted outside of [facility]) COVID-19 vaccine series ( season) 2024 09/16/2023 Influenza for age 65+ 05/30/2024 Care Teams Pond Scaler Relationship Specialty Start Date End Date Miryam Rob MD [address] [place], [place] [id number] PCP - General Internal Medicine 12/25/11
--- OUTSIDE RECORDS SUMMARY | 2024-06-22 13:00 | XMS_ITS | Referral Summary ---
Author Organization [facility] Address [address] [place] [address] Care Team Providers Care Bearingizer Name Role Phone Unavailable Primary Care Provider Unavailabl e Source Comments Patient records contain information from all sites at [facility]. For routine questions regarding patient records, call [phone] during business hours, M-F 8:00 AM - 5:00 PM Central Time. Record requests for emergency care only can be directed to [phone] at any time.[facility] Social History Tobacco Use Types Packs/Day Years Used Date Smoking Tobacco: Never Assessed Nutrition Answer Date Recorded Nutrition: EVOO Fat Source Unknown 06/10 Nutrition: Servings of Fruits/Vegetables per Day Not on file 06/10/2023 Dental Answer Date Recorded Dental: Regular Dentist Unknown 06/10/20 Sex and Gender Information Value Date Recorded Sex Assigned at Not on file Gender Identity Not on file Sexual Orientation Not on file Plan of Treatment Not on file
--- OUTSIDE RECORDS SUMMARY | 2024-06-22 13:00 | XMS_ITS | Referral Summary ---
Author Organization [facility] Address [address] [place] [address] Care Team Providers Care Senior Contract Specialist Name Role Phone Miryam Rob MD Primary Care Provider [phone] Allergies No known active allergies Medications Medication [...] Advance Directives For more information, please contact: [phone] * Full Code (Latest Code Status on File) Date Activated Date Inactivated Comments 07/19/2013 8:09 PM 07/22/2013 3:01 PM Care Teams Senior Contract Specialist Relationship Specialty Start Date End Date Miryam Rob MD [facility] [address] [place] [address] PCP - General Internal Medicine 07/19/13
--- OUTSIDE RECORDS SUMMARY | 2024-06-22 13:00 | XMS_ITS | Clinical Summary ---
Author Organization [facility] Address [address] [place] [address] Care Team Providers Care Enterprise Account Manager Name Role Phone Unavailable Primary Care Provider Unavailabl e Source Comments Patient records contain information from all sites at [facility]. For routine questions regarding patient records, call [phone] during business hours, M-F 8:00 AM - 5:00 PM Central Time. Record requests for emergency care only can be directed to [phone] at any time.[facility] Social History Tobacco Use Types Packs/Day Years Used Date Smoking Tobacco: Never Assessed Nutrition Answer Date Recorded Nutrition: EVOO Fat Source Unknown 06/10 Nutrition: Servings of Fruits/Vegetables per Day Not on file 06/10/2023 Dental Answer Date Recorded Dental: Regular Dentist Unknown 06/10/20 23 Sex and Gender Information Value Date Recorded Sex Assigned at Not on file Gender Identity Not on file Sexual Orientation Not on file Plan of Treatment Health Maintenance Due Date Last Done Comments Zoster Vaccines (2 of 3) 10/02/2012 08/07/2012 RSV vaccine - (32-3 6 weeks) or 60+ years (1 - 1-dose 75+ series) 2017 DTaP,Tdap,and Td Vaccines (2 - Td or Tdap) 07/20/2022 07/20/2012, 03/17/2008 Depression Screening (Annual PHQ-2) 09/29/2023 Fall Risk Screen (Annual) 09/29/2023 COVID-19 Vaccine (5 - 2023-2 5 season) 2024 09/16/2023, 02/05/2022, 12/20/2020, Additional history exists Influenza Vaccine (#1) 2024 , 06/10/2019, 07/01/2018, Additional history exists Pneumococcal vaccine (65+ years) Completed 01/02/2015, 05/25/2010, 03/17/2008
[2024-06-22 13:57] LABS: Basophils Percent Auto 0.6 % (0.0-3.0); Hematocrit 34.6 % (33.0-51.0); Hemoglobin* 10.7 gm/dL (12.0-16.0); Lymphocytes Percent Auto 30.8 % (20-44); Mean Corpuscular HGB Conc 31 gm/dL (32-36); Mean Corpuscular Hemoglobin 26 pg (26-34); Mean Corpuscular Volume 85 fL (80-100); Monocytes Percent Auto 13.3 % (0.0-11.0); Neutrophils Percent Auto 50.3 % (42.0-72.0); Platelet Count* 224 K/uL (140-440); RDW Coefficient of Variation % 16.6 % (11.5-15.5); Red Blood Count 4.07 m/uL (4.00-5.20)
[2024-06-22 14:01] LABS: Slide Review Reflex No
[2024-06-22 14:16] LABS: Chloride* 103 mmol/L (96-114); Potassium* 4.6 mmol/L (3.6-5.1); Sodium* 137 mmol/L (135-149)
[2024-06-22 14:19] LABS: Anion Gap 6 mEq/L (7-15); Blood Urea Nitrogen* 15 mg/dL (7-30); Carbon Dioxide* 28 mmol/L (20-32); Creatinine* 0.7 mg/dL (0.5-1.5); Estimated Glomerular Filt Rate 86 ml/min
[2024-06-22 14:20] LABS: Calcium* 9.2 mg/dL (8.4-10.6); Glucose* 83 mg/dL (60-115)
[2024-06-22 14:33] LABS: NT Pro B Type NatriureticPept* 859 pg/mL
[2024-06-22 14:51] LABS: Thyroid Stimulating Hormone* 0.021 uIU/mL (0.270-4.20)
== END 2024-06-22 12:58 | disposition home or self-care (01) ==
LOC: NPINS 12:57
PROVIDERS: PCP Internal Medicine; Visit Provider Nurse Practitioner Gerontology
DX: R60.0 Localized edema (principal); D64.9 Anemia, unspecified; E03.9 Hypothyroidism, unspecified; I48.19 Other persistent atrial fibrillation; I77.810 Thoracic aortic ectasia
CPT/HCPCS: 80048; 83880; 84443; 85025

== ENCOUNTER 2024-08-31 12:14 | Outpatient (REF) | payer MEDICARE, SELFPAY ==
--- OUTSIDE RECORDS SUMMARY | 2024-08-31 12:18 | XMS_ITS | Clinical Summary ---
Author Organization [facility] Address [address] [place] [address] Care Team Providers Care Director Of Sustainability Name Role Phone Unavailable Primary Care Provider Unavailabl e Source Comments Patient records contain information from all sites at [facility]. For routine questions regarding patient records, call [phone] during business hours, M-F 8:00 AM - 5:00 PM Central Time. 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 Gender Identity Not on file Sexual Orientation Not on file Plan of Treatment Health Maintenance Due Date Last Done Comments Zoster Vaccines (2 of 3) 10/02/2012 08/07/2012 RSV vaccine - (32-36 weeks) or 60+ years (1 - 1-dose 75+ series) 2017 DTaP,Tdap,and Td Vaccines (2 - Td or Tdap) 07/20/2022 07/20/2012, 03/17/2008 Depression Screening (Annual PHQ-2) 09/29/2023 Fall Risk Screen (Annual) 09/29/2023 COVID-19 Vaccine (5 - season) 2024 09/16/2023, 02/05/2022, 12/20/2020, Additional history exists Influenza Vaccine (#1) 2024 , 06/10/2019, 07/01/2018, Additional history exists Pneumococcal vaccine (65+ years) Completed 01/02/2015, 05/25/2010, 03/17/2008 IPV Vaccines Aged Out No longer eligi ble based on patient's age to complete this topic Insurance [facility]
--- OUTSIDE RECORDS SUMMARY | 2024-08-31 12:18 | XMS_ITS ---
Author Organization [facility] Address [address] [place] [address] Care Team Providers Care Fruit Coordinator Name Role Phone Unavailable Unavailable Unavailable Surgery Details Not on file Complications Check Surgery Details section. Procedure Estimated Blood Loss Check Surgery Details section. Procedure Findings Check Surgery Details section. Procedure Specimens Taken Check Surgery Details section.
--- OUTSIDE RECORDS SUMMARY | 2024-08-31 12:18 | XMS_ITS | Clinical Summary ---
Author Organization [facility] Address [address] [place] [address] Care Team Providers Care Satellite Television Installer Name Role Phone Miryam Rob MD Primary Care Provider Allergies No known active allergies Medications LEVOTHYROXINE SODIUM PO Take 175 mcg by [...] mouth daily Active warfarin (COUMADIN) 2.5 MG tabletIndications :PE (pulmonary embolism) Take 2 tablets (5 mg) by mouth daily 30 tablet 0 3 Active Active Problems Problem Noted Date Diagnosed Date Acute pulmonary embolism 07/19/2013 Social History Tobacco Use Types Packs/Day Years Used Date Smoking Tobacco: Never Alcohol Use Standard Drinks/Week Comments Yes 0 (1 standard drink = 0.6 oz pur e alcohol) socially Adolescent Education Answer Date Record ed Getting School Help Needed Not on file 06/20 Comments No Sex and Gender Information Value Date Recorded Sex Assigned at Not on file Legal Sex Female 3:07 PM CDT Gender Identity Not on file Sexual Orientation Not on file Last Filed Vital Signs Vital Sign Reading Time Taken Comments Blood Pressure 123/82 02/24/2019 7:31 PM CDT Pulse 85 07/19/2013 3:22 PM CDT Temperature 36.2 C (97.1 F) 02/24/2019 7:31 PM CDT Respiratory Rate 20 02/24/2019 7:31 PM CDT Oxygen Saturation 98% 02/24/2019 7:31 PM CDT Inhaled Oxygen Concentration - - Weight 99.8 kg (220 lb) 02/24/2019 7:31 PM CDT Height 162.6 cm (5' 4) 02/24/2019 7:31 PM CDT Body Mass Index 37.76 02/24/2019 7:31 PM CDT Plan of Treatment Not on file Insurance MEDICARE [facility] MEDICARE Advance Directives For more information, please contact: [phone] * Full Code (Latest Code Status on File) Date Activated Date Inactivated Comments 07/19/2013 8:09 PM 07/22/2013 3:01 PM Care Teams Satellite Television Installer Relationship Specialty Start Date End Date Miryam Rob MD [address] [address] PCP - General Internal Medicine 07/19/13
--- OUTSIDE RECORDS SUMMARY | 2024-08-31 12:18 | XMS_ITS | Referral Summary ---
Author Organization [facility] Address [address] [place] [address] Care Team Providers Care Magnetic Healer Name Role Phone Miryam oRb MD Primary Care Provider [phone] Allergies No known active allergies Medications LEVOTHYROXINE [...] of Treatment Not on file Insurance MEDICARE [facility] MEDICARE Advance Directives For more information, please contact: [phone] * Full Code (Latest Code Status on File) Date Activated Date Inactivated Comments 07/19/2013 8:09 PM 07/22/2013 3:01 PM Care Teams Magnetic Healer Relationship Specialty Start Date End Date Miryam Rob MD [address] [address] PCP - General Internal Medicine 07/19/13
--- OUTSIDE RECORDS SUMMARY | 2024-08-31 12:18 | XMS_ITS | Clinical Summary ---
Author Organization [facility] Address [place], [place] [address] Care Team Providers Care Animal Sticker Name Role Phone Miryam Rob MD Primary Care Provider [phone]- [phone] Allergies Active Allergy Reactions Criticality Noted Date [...] 75 06/10/2023 8:17 PM CDT Temperature 36.7 C (98 F) 06/10/2023 5:17 PM CDT Respiratory Rate 18 [...] leted outside of [facility]) COVID-19 vaccine series (2 - season) 2024 09/16/2023 Influenza for age 65+ 05/30/2024 Care Teams Animal Sticker Relationship Specialty Start Date End Date Miryam Rob MD [address] [place], [place] [id number] PCP - General Internal Medicine 12/25/11
--- OUTSIDE RECORDS SUMMARY | 2024-08-31 12:18 | XMS_ITS | Referral Summary ---
Author Organization [facility] Address [address] [place] [address] Care Team Providers Care Accounts Executive Name Role Phone Unavailable Primary Care Provider Unavailabl e Source Comments Patient records contain information from all sites at [facility]. For routine questions regarding patient records, call [phone] during business hours, M-F 8:00 AM - 5:00 PM Central Time. 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
[2024-08-31 13:50] LABS: Thyroid Stimulating Hormone* < 0.015 uIU/mL (0.270-4.20)
== END 2024-08-31 12:15 | disposition home or self-care (01) ==
LOC: NPINS 12:14
PROVIDERS: PCP Internal Medicine; Visit Provider Nurse Practitioner Gerontology
DX: E03.9 Hypothyroidism, unspecified (principal)
CPT/HCPCS: 84443

== ENCOUNTER 2024-10-19 11:06 | Outpatient (REF) | payer MEDICARE, SELFPAY ==
[2024-10-19 13:33] LABS: Ferritin* 6.9 ng/mL (11.1-264.0)
[2024-10-19 14:57] LABS: Vitamin B12* 154 pg/mL (243-894)
[2024-10-20 16:56] LABS: Folate, Serum 13.3 ng/mL (>=5.9)
== END 2024-10-19 11:07 | disposition home or self-care (01) ==
LOC: NPINS 11:06
PROVIDERS: PCP Internal Medicine; Visit Provider Family Medicine
DX: E03.9 Hypothyroidism, unspecified (principal); M17.11 Unilateral primary osteoarthritis, right knee; M17.12 Unilateral primary osteoarthritis, left knee; Z98.84 Bariatric surgery status
CPT/HCPCS: 82607; 82728; 82746; 84443

== ENCOUNTER 2024-12-21 12:34 | Outpatient (REF) | payer MEDICARE, SELFPAY ==
[2024-12-21 13:44] LABS: Thyroid Stimulating Hormone* < 0.015 uIU/mL (0.270-4.20)
== END 2024-12-21 12:35 | disposition home or self-care (01) ==
LOC: NPINS 12:34
PROVIDERS: PCP Internal Medicine; Visit Provider Nurse Practitioner Gerontology
DX: E03.9 Hypothyroidism, unspecified (principal)
CPT/HCPCS: 84443

== ENCOUNTER 2025-03-08 12:20 | Outpatient (REF) | payer MEDICARE, SELFPAY ==
[2025-03-08 13:39] LABS: Thyroid Stimulating Hormone* < 0.015 uIU/mL (0.270-4.20)
== END 2025-03-08 12:21 | disposition home or self-care (01) ==
LOC: NPINS 12:20
PROVIDERS: PCP Internal Medicine; Visit Provider Family Medicine
DX: E03.9 Hypothyroidism, unspecified (principal)
CPT/HCPCS: 84443

== ENCOUNTER 2025-05-24 12:52 | Outpatient (REF) | payer MEDICARE, SELFPAY ==
--- OUTSIDE RECORDS SUMMARY | 2025-05-25 00:20 | XMS_ITS ---
Author Name Auto Generated, Auto Generated Organization [facility] Functional Status No Results Mental Status No Results Allergies and Intolerances No Known Allergies Problems Active Concerns * Depression, unspecified depression type* Code: [id number] * Start Date: FriJun 19 00:00:00 EDT 2023 * End Date: FriJun 19 00:00:00 EDT 2023 * Text: * Ascending aorta dilatation* Code: [id number] * Start Date: FriJan 05 09:27:00 EDT 2024 * End Date: * Text: * Vitamin B12 deficiency* Code: [id number] * Start Date: FriDec 17 19:09:00 EDT 2024 * End Date: * Text: * Recurrent major depressive disorder, remission status unspecified* Code: [id number] * Start Date: FriJan 05 09:29:00 EDT 2024 * End Date: * Text: Reason for Referral
--- OUTSIDE RECORDS SUMMARY | 2025-05-25 00:21 | XMS_ITS | Clinical Summary ---
Author Organization [facility] Address [address] [place] [address] Care Team Providers Care Projector Booth Operator Name Role Phone Unavailable Primary Care Provider Unavailabl e Source Comments Patient records contain information from all sites at [facility]. For routine questions regarding patient records, call [phone] during business hours, M-F 8:00 AM - 5:00 PM Central Time. 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 Gender Identity Not on file Sexual Orientation Not on file Plan of Treatment Health Maintenance Due Date Last Done Comments Zoster Vaccines (2 of 3) 10/02/2012 08/07/2012 RSV vaccine - (32-36 weeks) or 60+ years (1 - 1-dose 75+ series) 2017 DTaP,Tdap,and Td Vaccines (2 - Td or Tdap) 07/20/2022 07/20/2012, 03/17/2008 COVID-19 Vaccine ( season) 2024 09/16/2023, 02/05/2022, 12/20/2020, Additional history exists Depression Screening (Annual PHQ-2) 09/29/2024 Fall Risk Screen (Annual) 09/29/2024 Influenza Vaccine (#1) 2025 3, 06/10/2019, 07/01/2018, Additional history exists Pneumococcal vaccine (50+ years) Completed 01/02/2015, 05/25/2010, 03/17/2008 IPV Vaccines Aged Out No longer eligi ble based on patient's age to complete this topic Insurance [facility]
--- OUTSIDE RECORDS SUMMARY | 2025-05-25 00:21 | XMS_ITS | Clinical Summary ---
Author Organization [facility] Address [address] [place] [address] Care Team Providers Care Bookie Name Role Phone Miryam Rob MD Primary [...] of Treatment Not on file Insurance MEDICARE [facility] Address: [address] [place] [address] MEDICARE Advance Directives For more information, please contact: [phone] * Full Code (Latest Code Status on File) Date Activated Date Inactivated Comments 07/19/2013 8:09 PM 07/22/2013 3:01 PM Care Teams Bookie Relationship Specialty Start Date End Date Miryam Rob MD [address] [address] PCP - General Internal Medicine 07/19/13
--- OUTSIDE RECORDS SUMMARY | 2025-05-25 00:21 | XMS_ITS | Clinical Summary ---
Author Organization [facility] Address [address] [place] [address] Care Team Providers Care Marketer Name Role Phone Miryam Rob MD Primary Care Provider [phone]- [phone] Allergies Active Allergy Reactions Criticality Noted Date Comments Dust Mites 08/14/2010 Sneezing, itchy eyes Pollen Extracts 08/14/2010 Birch trees-itchy and runny eyes and some shortness of breath Tomato (Solanum Lycopersicum) 08/14/2010 Facial swelling Unlisted Allergen (Include Detail In Comments) 08/14/2010 Dog and cat-itchy eyes and runny nose and itchy skin Medications MEDICATION ORDER COMPOSER B12 Injections 0 Active simvastatin (ZOCOR) 20 mg tablet Take 1 tablet by mouth at bedtime. 0 3 Active warfarin (COUMADIN) 2.5 mg tablet Two pills five days per week and one pill for two days per week. 0 4 Active levothyroxine (SYNTHROID) 200 mcg tablet 1 tablet once daily. 90 tablet 3 4 Active cholecalciferol (VITAMIN D) 2,000 unit capsule Take by mouth once daily. 0 Active metoprolol (LOPRESSOR) 50 mg tablet Take 1 tablet by mouth 2 times daily. 0 4 Active busPIRone (BUSPAR) 15 mg tabletIndicatio ns:Recurrent major depressive disorder, in full remission Take 1 tablet by mouth BID 60 tablet. 1 Active citalopram (CELEXA) 40 mg tabletIndicatio ns:Recurrent major depressive disorder, in full remission TAKE 1 TABLET BY MOUTH EVERY DAY 30 Tablet 2 1 Active Active Problems Problem Noted Date Diagnosed Date MARK (obstructive sleep apnea) 08/02/2015 Overview (08/02/2015): On cpap Pulmonary emboli 10/25/2013 Overview (10/25/2013): June 2013 Atrial fibrillation 10/25/2013 Major depression, recurrent 05/26/2012 Eating Disorder; gastric bypass in 197612/14/19 09 PTSD (Post-Traumatic Stress Disorder); by history (in [...] Answer Date Recorded PHQ-2 Score 0 11/29/2018 Comments No Sex and Gender Information Value Date Recorded Sex Assigned at Not on file 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 Female 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 Gender Identity Not on file Sexual [...] Health Maintenance Due Date Last Done Comments Pneumococcal series for age 50+ (1 of 2 - PCV) 1961 Zoster (shingles) series for age 50+ (1 of 2) 1992 DEXA/DXA scan for age 65+ 2007 Medicare Wellness for age 65+ 2007 BMI (ht and wt on same day) for age 18+ 01/02/2017 01/03/2016 RSV vaccine for adults or (1 - 1-dose 75+ series) 2017 Depression screening for age 12+ 03/11/2020 03/11/2019, 08/10/2018, 11/24/2017, Additional history exists Tetanus booster 08/29/2021 08/29/2011 (Comp leted outside of [facility]) COVID-19 vaccine series (2 - 2023- season) 2024 09/16/2023 Influenza Vaccine (#1) 2025 Hepatitis B series for 19+ Aged Out N o longer eligible based on patient's age to complete this topic Insurance [employer] MEDICARE ADVANTAGE [place] MEDICARE PART A HB ONLY Care Teams Marketer Relationship Specialty Start Date End Date Miryam Rob MD [address] [place] [address] PCP - General Internal Medicine 12/25/11
== END 2025-05-24 12:53 | disposition home or self-care (01) ==
LOC: NPINS 12:52
PROVIDERS: PCP Internal Medicine; Visit Provider Nurse Practitioner Gerontology
DX: E03.9 Hypothyroidism, unspecified (principal)
CPT/HCPCS: 84443

== ENCOUNTER 2025-08-02 13:37 | Outpatient (REF) | payer MEDICARE, SELFPAY ==
--- OUTSIDE RECORDS SUMMARY | 2025-08-03 00:15 | XMS_ITS | Clinical Summary ---
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
--- OUTSIDE RECORDS SUMMARY | 2025-08-03 00:15 | XMS_ITS | Clinical Summary ---
Author Organization [facility] Address [address] [place] [address] Care Team Providers Care Wound Care Rn Name Role Phone Miryam Rob MD Primary Care Provider [phone] Allergies No known active allergies Medications LEVOTHYROXINE [...] of Treatment Not on file Insurance MEDICARE [facility] MEDICARE Advance Directives For more information, please contact: [phone] * Full Code (Latest Code Status on File) Date Activated Date Inactivated Comments 07/19/2013 8:09 PM 07/22/2013 3:01 PM Care Teams Wound Care Rn Relationship Specialty Start Date End Date Miryam Rob MD [address] [address] PCP - General Internal Medicine 07/19/13
== END 2025-08-02 13:38 | disposition home or self-care (01) ==
LOC: NPINS 13:37
PROVIDERS: PCP Internal Medicine; Visit Provider Nurse Practitioner Gerontology
DX: E03.9 Hypothyroidism, unspecified (principal)
CPT/HCPCS: 84443